=== PATIENT | female | born 1935 | race Caucasian/White ===

== ENCOUNTER 2017-07-01 16:55 | Observation (INO) | payer MEDICARE, BC ==
[~2017-07-01 16:55] MED LIST: ISOVUE-370 76%-LOCM 1 ML ONE
[2017-07-01 17:23] LABS: #Basophils 0.1 thou/uL (0.0-0.2); #Eosinphils 0.2 thou/uL (0.0-0.7); #Monocytes 1.1 thou/uL (0.11-0.59); #Neutrophils 9.8 thou/uL (1.40-6.50); %Basophils 0.6 % (0.0-1.0); %Eosinophils 1.1 % (0.0-10.0); %Lymphocytes 30.9 % (21.0-51.0); %Monocytes 6.8 % (0.0-10.0); Hematocrit 44.1 % (36.0-47.0); Mean Platelet Volume 7.5 fL (7.4-10.4); Red Blood Cell (RBC) Count 4.74 mill/uL (4.20-5.40); White Blood Cell (WBC) Count 16.2 thou/uL (4.8-10.8)
[2017-07-01 17:30] LABS: Prothrombin Time 12.9 SEC (12.0-14.7)
[2017-07-01 17:31] LABS: PTT 34.7 SEC (22.9-36.1)
[2017-07-01] MEDS ORDERED: Acetaminophen 500 MG TAB ONE (17:36)
[2017-07-01] MEDS ORDERED: Nitroglycerin 2% Ointment 1 INCH/1 GM Packet ONE (17:36)
[2017-07-01 17:43] LABS: Digoxin Less than 0.15 ng/mL (0.8-2.0)
[2017-07-01 17:46] LABS: ALT (SGPT) 10 U/L (8-55); AST (SGOT) 14 U/L (5-34); Alkaline Phosphatase 120 U/L (40-150); Anion Gap 16 mmol/L (10-20); BUN (Urea Nitrogen) 15 mg/dL (9.8-20.1); Bilirubin, Total 0.7 mg/dL (0.2-1.2); CK (CPK) 51 U/L (29-168); Calc. Creatinine Clearance 0 mL/min (70-130); Calcium 9.6 mg/dL (7.8-10.44); Carbon Dioxide 27 mmol/L (23-31); Chloride 101 mmol/L (98-107); Estimated GFR-MDRD 71; Lipase 19 U/L (8-78); Protein, Total 7.1 g/dL (6.0-8.3)
[2017-07-01 17:48] LABS: Troponin I Less than 0.010 ng/mL (< 0.028)
--- NOTE | 2017-07-01 17:57 | RAD ---
PORTABLE UPRIGHT CHEST ONE VIEW: History: 81-year-old female with chest pain. FINDINGS: Monitor leads overlie the chest. Atherosclerosis of the aorta with ectasia. Upper range of normal si ze heart. Increased linear and interstitial markings noted bilaterally with some biapical pleural th ickening having more the appearance of chronic change. No confluent pneumonia, overt edema, or pleur al effusion. IMPRESSION: Minimal scattered chronic change. No acute intrathoracic disease. POS: [facility]
--- NOTE | 2017-07-01 19:54 | CT ---
CHEST CT ANGIOGRAM INCLUDING 3D RENDERING: History: 81-year-old female with chest pain. FINDINGS: There is enlargement of the left lobe of the thyroid with a multinodular appearance. This area of ab normality noted approximately 2.1 x 3.4 cm in AP and transverse dimensions at the lower thyroid leve l. There is biapical pleural thickening. Extensive emphysema changes bilaterally with chronic linear and interstitial lung disease. Three vessel coronary artery calcific disease. No evidence of pleura l effusion or pericardial effusion. There is some atherosclerosis of the aorta with poor mixing of c ontrast. There is no significant CT evidence for acute pulmonary embolism. Visualized upper abdomen is unremarkable. The descending thoracic aorta is ectatic up to 3.3 x 3.5 cm. IMPRESSION: No significant CT evidence for acute pulmonary embolus. Chronic changes bilaterally with emphysema a nd hyperinflation and biapical pleural thickening. Some atherosclerotic ectatic changes of the aorta . Diffuse bony demineralization. POS: [facility]
[2017-07-01] MEDS ORDERED: Losartan Potassium 25 MG TAB PO SCH (20:00)
[2017-07-01] MEDS ORDERED: hydrALAZINE 20 MG/ML VIAL SLOW IVP PRN (20:49)
[2017-07-01] MEDS ORDERED: HYDROcodone/Acetaminophen 10/325 mg Tablet PO PRN (20:49)
[2017-07-01] MEDS ORDERED: HYDROcodone/Acetaminophen 5/325 mg Tablet PO PRN (20:49)
[2017-07-01] MEDS ORDERED: Acetaminophen 325 MG TAB PO PRN (20:49)
--- NOTE | 2017-07-01 21:09 | HP ---
CHIEF COMPLAINT: Chest pain and high blood pressure. HISTORY OF PRESENT ILLNESS: Ms. Hagan is a very pleasant 81-year-old white female with a histor y of hypertension, recently diagnosed, anxiety and \\\\"balance problems.\\\\" The patient was in her normal state of health until this morning. She woke up with some chest disco mfort all the way across her chest. She notes that the pain was worse with palpation or motion and worse with deep inspiration with alleviating factors being not moving and not taking deep breaths. She noted that her blood pressure was elevated through the day and the pain seemed to get worse this afternoon, so she called the EMS. Supposedly, on EMS arrival, her blood pressure was 243/148. She was given a medicine on transport and brought to the Emergency Department for evaluation. Patient was given 324 mg of aspirin, and presented to this Emergency Department for evaluation. Here, she was still found to be hypertensive in the 211/110 range, she was placed on nitro paste wit h some improvement. Her chest pains also eased up. She was given sublingual nitro, which did not r eally make a difference in her chest pain. Workup here showed her labs to be unremarkable. Her troponin was negative. CK-MB was negative and BNP was slightly elevated to 57. D-dimer was mildly elevated at 1.09, so CT angio has been ordered and it is pending. She denies any shortness of breath, no diaphoresis, no nausea and vomiting. No fevers or chills, no cough or sputum production. No GI bleeding from above or below or hemoptysis. The patient normally takes her blood pressure medicines, which were started after her high blood pre ssure was found with a stress test a couple months ago. She had a headache earlier and took some Ex cedrin, and because she had caffeine, did not want to take regular blood pressure medicines, so did not take her regular blood pressure medicines at all. PAST MEDICAL HISTORY: 1. Anxiety. 2. Hypertension. 3. Vertigo or disequilibrium. 4. Compression fracture. She did have a stress test a couple of months ago that was unremarkable for ischemia, but did reveal her high blood pressure. PAST SURGICAL HISTORY: Include; 1. Laparoscopic cholecystectomy in 2005. 2. Right inguinal hernia repair remotely. 3. Left inguinal hernia repair in 11/2015. 4. Colonoscopy 5-6 years ago. 5. Back surgery. HOME MEDICATIONS: 1. Duloxetine 60 mg p.o. daily. 2. Ativan 0.5 mg p.o. daily. 3. Losartan 100 mg p.o. daily. 4. Metoprolol 25 mg p.o. b.i.d. 5. Mirtazapine 30 mg p.o. at bedtime. ALLERGIES: NKDA. FAMILY HISTORY: Significant for dad had coronary artery disease, diagnosed in \\\\"middle age.\\\\" No history of clotting or bleeding disorders, no immune dysfunction. SOCIAL HISTORY: Negative habits. No real alcohol or drugs. She does smoke about one-third pack of cigarettes per day for 50 years. REVIEW OF SYSTEMS: A 10-point review of systems was performed, negative for all other systems excep t as stated per HPI. PHYSICAL EXAMINATION: VITAL SIGNS: Temperature is 98.2, pulse 78, blood pressure 183/80, respiratory 20 and sating 94% on room air. GENERAL: She is awake. She is alert. She is oriented x3. She is well-developed, well-nourished, thin white female, appears to be in no acute distress. HEENT: Normocephalic and atraumatic. Pupils are equal, round and reactive to light bilaterally, mu cous membranes are moist. She had no visible lesions. No thrush. NECK: Supple. She had no lymphadenopathy, no JVD, no thyromegaly. LUNGS: Clear to auscultation bilaterally. There are no wheezes, no rales, no rhonchi. Her chest w all is tender to palpation. CARDIOVASCULAR: Normal S1 and S2. No S3 or S4. No murmurs and no rubs. ABDOMEN: Soft. It is nontender and nondistended with normoactive bowel sounds. She has no rebound , rigidity or guarding. EXTREMITIES: No cyanosis, no clubbing, no edema with 2+ peripheral pulses in the dorsalis pedis, po sterior tibial and radial arteries that are bounding. SKIN: Warm, moist and well perfused. She has no hyperemia, no rashes or lesions. NEUROLOGIC: Cranial nerves II-XII are grossly intact without any focal neurologic deficits. SKIN: She has normal speech and 5/5 strength. MUSCULOSKELETAL: Normal to inspection. She has no inflamed joints and no palpable joint effusions. LABORATORY DATA: CMP and CBC are normal except for white blood cell count of 16.2 with a normal dif ferential. IMAGING DATA: Chest x-ray showed minimal scattered chronic changes and no acute intrathoracic disea se. Her CT angio is pending and will follow up on. ASSESSMENT AND PLAN: 1. Hypertensive urgency. Blood pressure apparently was 243/148 earlier. We will restart her home medications, p.r.n. hydralazine, and will monitor her blood pressure. We will place her in observat ion overnight. I suspect, chest pain may be related. 2. Noncardiac chest pain. She had chest pain all day long. Negative biomarkers, negative EKG. He r chest pain is better as the pressures come down. We will watch her overnight, get serial cardiac biomarkers and reassess in the morning. Watch on telemetry overnight. 3. Anxiety: On Ativan 0.5 mg daily. She took apparently this morning. 4. History of disequilibrium: Out of bed with assistance and fall precautions. 5. Gastrointestinal prophylaxis with Pepcid will be started. 6. Deep venous thrombosis prophylaxis with sequential compression devices. We will reorder her ely tazapine 30 mg at bedtime for insomnia.
[2017-07-01] MEDS: Metoprolol Tartrate 25 MG TAB PO SCH (21:37)
[2017-07-01] MEDS: Famotidine 20 MG TAB PO SCH (21:37)
[2017-07-01 22:29] LABS: Troponin I Less than 0.010 ng/mL (< 0.028)
[2017-07-02] MEDS: Ondansetron ODT 4 MG TAB PO PRN ×2 (04:40→10:12)
[2017-07-02 05:22] LABS: #Basophils 0.1 thou/uL (0.0-0.2); #Eosinphils 0.2 thou/uL (0.0-0.7); #Lymphocytes 3.5 thou/uL (1.20-3.40); #Monocytes 1.2 thou/uL (0.11-0.59); #Neutrophils 8.8 thou/uL (1.40-6.50); %Basophils 0.5 % (0.0-1.0); %Eosinophils 1.4 % (0.0-10.0); %Lymphocytes 25.7 % (21.0-51.0); %Monocytes 8.4 % (0.0-10.0); Hematocrit 42.7 % (36.0-47.0); Mean Platelet Volume 7.2 fL (7.4-10.4); Red Blood Cell (RBC) Count 4.61 mill/uL (4.20-5.40); White Blood Cell (WBC) Count 13.7 thou/uL (4.8-10.8)
[2017-07-02 05:44] LABS: Anion Gap 14 mmol/L (10-20); BUN (Urea Nitrogen) 17 mg/dL (9.8-20.1); Calc. Creatinine Clearance 0 mL/min (70-130); Calcium 9.3 mg/dL (7.8-10.44); Carbon Dioxide 27 mmol/L (23-31); Chloride 101 mmol/L (98-107); Estimated GFR-MDRD 68
[2017-07-02 05:59] VITALS: BMI 14.3
[2017-07-02 06:34] LABS: Troponin I Less than 0.010 ng/mL (< 0.028)
[2017-07-02] MEDS ORDERED: Losartan Potassium 25 MG TAB PO SCH (09:00)
[2017-07-02] MEDS ORDERED: Naproxen 500 MG TAB PO PRN (09:57)
[2017-07-02] MEDS ORDERED: traMADol HCl 50 MG TAB PO PRN (09:58)
[2017-07-02] MEDS ORDERED: Potassium Chloride 20 MEQ TAB PO SCH (10:00)
[2017-07-02] MEDS: Famotidine 20 MG TAB PO SCH (10:11)
[2017-07-02] MEDS: Metoprolol Tartrate 25 MG TAB PO SCH (10:12)
[2017-07-02 11:45] VITALS: BP 158/74; TEMP 98.1
--- NOTE | 2017-07-02 14:04 | DIS ---
DATE OF ADMISSION: 07/01/2017 DATE OF DISCHARGE: 07/02/2017 DISCHARGE DIAGNOSES: 1. Noncardiac chest pain. 2. Hypertensive urgency. 3. Essential hypertension. 4. Anxiety. 5. Dysequilibrium. 6. Recent fall and compression fracture. CONSULTATIONS: None. PROCEDURES: CT angiogram negative for pulmonary embolus showing chronic lung changes. HOSPITAL COURSE: Ms. Hagan is a pleasant, but slightly cantankerous 81-year -old female who is a patient of Dr. Oscar Anglin. She was in normal state of health until the morning of admission. She woke up with some chest discomfort that went all the way across her chest. It hurt with palpation to her chest and movement and deep breathing. She watched this morning, but noted that her blood pressure was elevated, so she called EMS. On arrival it was reported the blood pressure was 243/148. She was given some medication on transport and brought to our emergency department for evaluation. On arrival, she was initially 211/110. She was given transcutaneous nitro paste with some improvement. Labs including a CK-MB, CK, and troponin were negative and BNP was slightly elevated. A D-dimer was 1.09. CT angiogram was ordered and we were called for admission. She had no shortness of breath, diaphoresis, no nausea or vomiting. She had no signs of diaphoresis. HOSPITAL COURSE: The patient was seen and examined by me in the emergency department. The patient was placed in observation. CT angiogram report revealed no evidence of pulmonary embolus. Overnight, she did get her regular blood pressure medicines with a single dose of hydralazine. Her blood pressure remained in the 150s to 160s systolic all night long and at one point this morning dropped down to 118/68 while she was sleeping. Chest pain was largely asymptomatic, when her pressure came up in the 140s to 150s this morning she did complain of a little more chest pain, but did not change in character from admission. She had her morning medicines and her blood pressure and heart rate remained stable. She got some Naprosyn, which treated her pain and she was otherwise asymptomatic and stable for discharge. She had 3 sets of cardiac biomarkers that were negative. Per history, she had a stress test at [facility] a month or two ago that was \\\\"normal.\\\\" The patient was discharged home with outpatient followup. PHYSICAL EXAMINATION: The patient was seen and examined on the day of discharge. Discharge plan and disposition was discussed with the patient face to face at the bedside. Greater than 35 minutes were spent in the room with the patient and coordinating discharge and followup. DISCHARGE MEDICATIONS: 1. Duloxetine 60 mg p.o. daily. 2. Lorazepam 0.5 mg p.o. t.i.d. 3. Losartan 100 mg daily. 4. Metoprolol tartrate 25 mg p.o. b.i.d. 5. Mirtazapine 30 mg daily. 6. I offered her tramadol 50 mg p.o. q.6h. and she did refuse that. FOLLOWUP APPOINTMENTS Dr. Oscar Anglin within a week. DISCHARGE CONDITION: Stable. DISPOSITION: Being discharged home via private vehicle. Instructions to return to the emergency department for uncontrolled high blood pressure, or change in her chest pain. [facility]
== END 2017-07-02 13:54 | disposition home or self-care (01) ==
LOC: ERS 16:55 → 2SW 19:40
PROVIDERS: ADMIT Internal Medicine Infectious Disease; ATTEND Internal Medicine Infectious Disease
DX: R07.89 Other chest pain (principal); I16.0 Hypertensive urgency; I10 Essential (primary) hypertension; F41.9 Anxiety disorder, unspecified; R42 Dizziness and giddiness; Z91.81 History of falling; T14.8XXA Other injury of unspecified body region, initial encounter; Z88.5 Allergy status to narcotic agent; Z79.899 Other long term (current) drug therapy; Z87.891 Personal history of nicotine dependence
CPT/HCPCS: 71010; 71275; 80048; 80053; 80162; 82550; 82553 ×3; 83690; 83880; 84132; 84484 ×3; 85025 ×2; 85379; 85610; 85730; 93005; 99291; G0378; 36415; Q0162

== ENCOUNTER 2017-08-27 16:21 | Emergency (ER) | payer MEDICARE, BC ==
[2017-08-27] MEDS ORDERED: Dexamethasone 10 MG/ML VIAL ONE (16:56)
[2017-08-27] MEDS ORDERED: Fentanyl 100 MCG/2 ML VIAL ONE ×2 (16:57→19:12)
[2017-08-27 17:15] LABS: #Eosinphils 0.3 thou/uL (0.0-0.7); #Lymphocytes 2.4 thou/uL (1.20-3.40); #Monocytes 0.8 thou/uL (0.11-0.59); #Neutrophils 6.9 thou/uL (1.40-6.50); %Basophils 0.4 % (0.0-1.0); %Eosinophils 2.6 % (0.0-10.0); %Monocytes 7.4 % (0.0-10.0); Hematocrit 42.2 % (36.0-47.0); Mean Platelet Volume 7.4 fL (7.4-10.4); Red Blood Cell (RBC) Count 4.57 mill/uL (4.20-5.40); White Blood Cell (WBC) Count 10.4 thou/uL (4.8-10.8)
[2017-08-27 17:36] LABS: ALT (SGPT) 9 U/L (8-55); AST (SGOT) 14 U/L (5-34); Alkaline Phosphatase 119 U/L (40-150); Anion Gap 14 mmol/L (10-20); BUN (Urea Nitrogen) 14 mg/dL (9.8-20.1); Bilirubin, Total 0.3 mg/dL (0.2-1.2); Calc. Creatinine Clearance 0 mL/min (70-130); Calcium 9.5 mg/dL (7.8-10.44); Carbon Dioxide 29 mmol/L (23-31); Chloride 99 mmol/L (98-107); Estimated GFR-MDRD 70; Globulin 3.4 g/dL (2.4-3.5); Lipase 20 U/L (8-78); Protein, Total 7.2 g/dL (6.0-8.3)
[2017-08-27 17:40] LABS: Troponin I 0.016 ng/mL (< 0.028)
[2017-08-27] MEDS ORDERED: Magnesium Citrate 300 ML BOT ONE (19:09)
--- NOTE | 2017-08-27 19:20 | CT ---
ABDOMEN AND PELVIS CT SCAN WITH IV CONTRAST: History: 81-year-old female with back pain and lower GI bleed. Comparison: 12-22-15 FINDINGS: There is some mild linear chronic appearing stranding in the lung bases. Atherosclerosis of the aorta with some ectasia and extensive calcification of the aorta as well as right and left iliac arteries with at least some degree of iliac artery stenosis. Status post cholecystectomy with fairly marked di latation of the common bile duct and central intrahepatic ducts, but stable from the prior 12-22-15 st udy. Pancreas, spleen, and adrenal glands are within normal limits, stable from prior study. There is mild fullness of both right and left renal pelvises, somewhat more so on the right side but these have de finitely improved when compared to the prior study. There is extensive solid thecal material througho ut the colon including a dilated rectum, evidence for significant obstipation. There are multiple col onic diverticulosis changes without evidence for acute diverticulitis. A definite normal appendix is not seen but there is no CT evidence for acute appendicitis. No evidence for large or small bowel obs truction. There is noted to be very severe compression fracture of L4. There is also fairly severe co mpression fracture of L2 and mild compression of L1. The L2 and L4 compression fractures are new from the 12-22-15 study. In addition, the L4 fracture is new when compared to a 10-25-16 lumbar spine. IMPRESSION: Very severe vertical height loss of the L4 vertebral body with some retropulsion and canal stenosis w hich does not appear by CT to be overtly acute but is new when compared to the 10-25-16 study. Stable post op cholecystectomy and dilated common bile duct and intrahepatic ducts. Mild fullness of the katalina al upper collecting system on the right side, but much improved from prior study. Evidence for obstip ation. Numerous other non-emergent findings which are overall stable. POS: [facility]
[2017-08-27] MEDS ORDERED: Diazepam 5 MG TAB ONE (23:06)
[2017-08-27] MEDS ORDERED: Diazepam 2 MG TAB PO SCH (23:15)
[2017-08-27] MEDS ORDERED: Ketorolac Tromethamine 30 MG/ML VIAL ONE (23:40)
--- NOTE | 2017-08-28 00:11 | CON ---
DATE OF CONSULTATION: 08/27/2017 HISTORY OF PRESENT ILLNESS: The patient is a 81-year-old female with a past medical histor y of chronic back pain, prior compression fractures of L1 and L2, osteopenia, hypertension, anxiety, vertigo, who presented to the ER [facility] for evaluation of hematochezia x1 week and progressively wor sening back pain and the right leg discomfort over the past 3 days. The patient denies trauma or any other inciting event. The patient was evaluated with a CT of the chest, abdomen, and pelvis, which revealed progression of the L2 compression deformity and a new L4 compression fracture with mild retr opulsion. This L4 compression fracture, although new when compared to lumbar CT in 10/2016, does not appear acute in its appearance. Patient reports some worsening low back pain for approximately 3 days. There was no inciting event. She describes some sharp stabbing sensation in the back with radiation down the right leg in an L4 p attern. She denies any leg weakness, numbness, tingling of legs, saddle anesthesia, urinary incontin ence, or difficulty emptying her bladder. In the past, she reports her compression fractures have be en treated with a TLSO brace. She denies any prior back surgery. She was treated with fentanyl in [facility] emergency department with significant improvement in her pain. PAST MEDICAL HISTORY: Chronic back pain, compression fractures, osteopenia, hypertension, anxiety, v ertigo. PAST SURGICAL HISTORY: Cholecystectomy, hernia repair. ALLERGIES: The patient is allergic to CODEINE and MORPHINE. FAMILY HISTORY: Noncontributory. SOCIAL HISTORY: The patient lives at home. She is . She does not smoke, drink, or use any d rugs. REVIEW OF SYSTEMS: Per HPI. PHYSICAL EXAMINATION: VITAL SIGNS: BP 185/103, heart rate 86, respirations rate is 18, temperature 97.3. The patient is 9 3% on room air, 4/10 pain at this time. CONSTITUTIONAL: No acute distress. GENERAL: Lying comfortably in the bed. HEAD: Normocephalic, atraumatic. EYES: PERRLA. Extraocular movements are intact. ENT: OP is clear. Mucosa are moist. Voice is normal. NECK: Nontender to palpation. Free active range of motion, no meningismus or nuchal rigidity. CARDIOVASCULAR: Regular rate and rhythm. LUNGS: The patient is breathing comfortably with no evidence of dyspnea. She has symmetric chest ex pansion. ABDOMEN: Flat, soft, nontender to palpation. BACK: She is tender to palpation diffusely over the lumbar spine and bilateral paralumbar musculatur e. MUSCULOSKELETAL: She has good muscle tone to bilateral upper and lower extremities. No focal motor weakness is appreciated. No reflex asymmetry. NEUROLOGIC: The patient is A and O x4. No focal neurologic deficits are appreciated. ASSESSMENT: Chronic back pain, osteopenia, compression fractures, progression of L2 compression defo rmity, and new L4 compression deformity. PLAN: Although, L4 compression fracture, it is new when compared to prior. Imaging does not appear acute in nature. The patient does report significantly progressive worsening back pain over several months, but worsening over the last 3 days. She has no focal motor weakness on my exam, but she does have new right radicular leg pain. There is mild retropulsion when looking at the CT, so we will re commend evaluation with the lumbar noncontrast MRI. I have also ordered TLSO brace. The patient may require rehabilitation placement at some point. Regarding her other medical issues, these will be m anaged by the medical service and she will be admitted primary to their service. I have discussed th is plan with Dr. Decker, who is in agreement. Please reach out the Neurosurgery Service for additi onal questions or concerns.
== END 2017-08-27 23:50 | disposition home or self-care (01) ==
LOC: ERS 16:21
DX: S32.049A Unspecified fracture of fourth lumbar vertebra, initial encounter for closed fracture (principal); K92.2 Gastrointestinal hemorrhage, unspecified; K59.00 Constipation, unspecified; I10 Essential (primary) hypertension; F41.9 Anxiety disorder, unspecified; X58.XXXA Exposure to other specified factors, initial encounter
CPT/HCPCS: 36415; 74177; 80053; 82274; 82553; 83690; 84484; 85025; 86850; 86900; 86901; 93005; 96374; 96375; 96376; J1100; J1885; J3010

== ENCOUNTER 2018-01-08 09:09 | Inpatient (IN) | payer MEDICARE, BC ==
[2018-01-08] MEDS ORDERED: Fentanyl 100 MCG/2 ML VIAL ONE ×5 (09:24→17:23)
[2018-01-08] MEDS ORDERED: Ondansetron ODT 4 MG TAB ONE (09:26)
[2018-01-08 09:59] LABS: Hemoglobin 10.8 g/dL (12.0-16.0); Mean Corpuscular HGB CONC 31.6 g/dL (32.0-36.0); Mean Corpuscular Hemoglobin 26.5 pg (27.0-31.0); Mean Corpuscular Volume 83.8 fl (81.0-99.0); Platelet Count 605 thou/uL (130-400); RBC Distribution Width 14.6 % (11.5-14.5); Red Blood Cell (RBC) Count 4.09 mill/uL (4.20-5.40); White Blood Cell (WBC) Count 36.8 thou/uL (4.8-10.8)
[2018-01-08] MEDS ORDERED: Promethazine HCl 25 MG/ML VIAL ONE (10:09)
[2018-01-08] MEDS ORDERED: Sodium Chloride 0.9% 100 ML ONE (10:09)
[2018-01-08 10:21] LABS: ALT (SGPT) 8 U/L (8-55); AST (SGOT) 10 U/L (5-34); Albumin 2.9 g/dL (3.4-4.8); Alkaline Phosphatase 191 U/L (40-150); Anion Gap 18 mmol/L (10-20); BUN (Urea Nitrogen) 31 mg/dL (9.8-20.1); Bilirubin, Total 0.5 mg/dL (0.2-1.2); Calc. Creatinine Clearance 0 mL/min (70-130); Calcium 8.3 mg/dL (7.8-10.44); Carbon Dioxide 26 mmol/L (23-31); Chloride 97 mmol/L (98-107); Estimated GFR-MDRD 68; Globulin 3.5 g/dL (2.4-3.5); Glucose 145 mg/dL (83-110); Lipase 14 U/L (8-78); Magnesium 1.5 mg/dL (1.6-2.6); Protein, Total 6.4 g/dL (6.0-8.3); Sodium 138 mmol/L (136-145)
[2018-01-08 10:26] LABS: Potassium 2.7 mmol/L (3.5-5.1)
[2018-01-08 10:29] LABS: Anisocytosis SLIGHT = 6-15 cells (100X) (0-5/hpf); Band 13 % (5-11); Hypochromia SLIGHT = 6-15 cells (100X) (0-5/hpf); Lymphocytes 2 % (21-51); MDiff Complete? YES; Monocytes 1 % (0-10); Neutrophil 84 % (42-75); PLT Morphology Comment Appears Increased; Target Cells SLIGHT = 2-5 cells (100X) (0-1/hpf)
--- NOTE | 2018-01-08 11:09 | RAD ---
SINGLE VIEW OF THE CHEST: COMPARISON: 07/01/17. HISTORY: Abdominal pain and shortness of breath. Nausea and vomiting. FINDINGS: A single view of the chest shows a normal-size cardiomediastinal silhouette with atherosclerotic calc ifications of the aorta. Increased interstitial markings are present. There is no evidence of conso lidation, mass, or pleural effusion. IMPRESSION: No evidence of acute cardiopulmonary disease. POS: [facility]
[2018-01-08] MEDS ORDERED: Piperacillin/Tazobactam 3.375 GM VIAL ONE ×2 (11:51→18:32)
[2018-01-08 12:21] LABS: Bilirubin Negative (Negative); Blood, Urine Negative (Negative); Clarity CLEAR (Clear); Glucose, Urine (Dipstick) Negative (Negative); Leukocyte Negative (Negative); Nitrite Negative (Negative); Protein, Urine (Dipstick) 100 mg/dL (Neg-Trace); Specific Gravity, Urine 1.041 (1.002-1.036)
[2018-01-08 12:24] LABS: Bacteria/HPF 3+ HPF (None Seen); Pathc Cast-AUWi Flag 0.87 (0-2.49)
--- NOTE | 2018-01-08 12:31 | CT ---
CT OF THE ABDOMEN AND PELVIS WITH IV CONTRAST: INDICATION: Abdominal pain and shortness of breath. COMPARISON: Prior exam dated 08/27/17. FINDINGS: There are small bilateral pleural effusions. There is a moderate-sized hiatal hernia. There is biba silar atelectasis. There is a cirrhotic morphology to the liver. There is free air and free fluid seen throughout the a bdomen and pelvis. There is a 10.3 x 6.2 cm fluid and gas collection seen adjacent to the proximal sigmoid colon suspici ous for perforated colitis. There is marked wall thickening involving the rectum and colon suspiciou s for diffuse proctocolitis. There is a peripherally enhancing fluid collection seen behind the bladder within the retrovesicular space measuring 6.1 cm on image 62 of series 2. The gallbladder is surgically absent. Visualized pancreas, adrenal gland, and kidneys appear within normal limits. The spleen is normal-appearing. There is wall thickening involving the distal gastri c antrum and duodenum. There are stable compression abnormalities involving L4, L2 and L1. There are new compression abnorm alities involving T12 and L3 which were not present on the prior exam. There are bilateral insuffici ency fractures of the sacral ala which are new from the prior exam. There is an ununited insufficien cy fracture involving the right pubic body which is new from the prior exam. IMPRESSION: 1. Findings most consistent with a perforated colitis of the sigmoid colon with a large fluid and ga s communication seen adjacent to the sigmoid colon within the left lower quadrant of the abdomen exte nding into the left hemipelvis and up to the skin surface of the left lower quadrant of the abdomen o n image 57 of series 2. There is fluid and gas communicating with the left iliopsoas tendon. 2. There is a peripherally enhancing fluid collection within the retrovesicular space measuring 6.1 cm that is not amenable to percutaneous sampling. 3. Scattered free air and free fluid within the abdomen and pelvis consistent with intraperitoneal p erforation. 4. Small bilateral pleural effusions and bibasilar atelectasis. 5. Interval development of compression fractures involving the L3 and T12. 6. New insufficiency fractures of both sacral alae and the right pubic body. 7. Moderate hiatal hernia. 8. Cirrhotic morphology of the liver. 9. Findings were called to Dr. Payne at 11:15 a.m. on 01/08/18. CODE CR POS: [facility]
--- NOTE | 2018-01-08 12:50 | CON ---
DATE OF CONSULTATION: 01/08/2018 REQUESTING PHYSICIAN: Maria R Payne M.D. HISTORY OF PRESENT ILLNESS: This is an 82-year-old woman presented to Emergency Department today complaining of severe generalized abdominal pain. The patient reports progressively worsening left lower quadrant abdominal pain which started almost one week ago. Pain is described as sharp in itially without radiation. Over the last 24-48 hours, the pain is generalized, now rated at 10/10. The pain is associated with multiple episodes of nausea and slightly bilious emesis. Patient had a b out of diarrhea this morning. She denies any fevers or chills. PAST MEDICAL HISTORY: Pertinent for diverticulosis coli, degenerative arthritic disease, essential h ypertension, chronic anxiety disorder and vertigo. PAST SURGICAL HISTORY: Pertinent for laparoscopic cholecystectomy in 2005, right inguinal herniorrha phy many years ago. The patient also had a left inguinal herniorrhaphy in 11/2015. Last colonoscopy was more than 5 years ago, but less than 10 years. She has had some spinal surgery. She does not r ecall the level. SOCIAL HISTORY: She is a retired elementary school professional. She lives at home with elderly with senile dementia. She also has an adult son who lives in the same house. She denies any cigarette smoking, ethanol or illicit drug abuse. FAMILY HISTORY: Noncontributory for this patient's age. PREHOSPITAL MEDICATIONS: Includes duloxetine 60 mg p.o. daily, Ativan p.o. p.r.n., losartan 100 mg p .o. daily, metoprolol 25 mg p.o. b.i.d. and mirtazapine 30 mg p.o. at bedtime. ALLERGIES: Patient denies any known drug allergies. REVIEW OF SYSTEMS: Ten point review of systems essentially unremarkable except for as stated in past medical history and chief complaint. PHYSICAL EXAMINATION: GENERAL: This reveals 82-year-old normally developed woman who is otherwise coherent and interactive and appears stated age. The patient is alert and oriented x3. She appears to be in severe acute di stress secondary to her severe abdominal pain. VITAL SIGNS: Initial vital signs included blood pressure which was over 200 of systolic on arrival. Having received some intravenous analgesics, current blood pressure is 171/75, pulse 113, respirator y rate is 18, temperature 97.6 degrees Fahrenheit, oxygen saturation is 100% on 2 liters by nasal can nula oxygen. HEENT: Examination reveals normocephalic and atraumatic. Pupils equal, round, and reactive to light and accommodation. Extraocular muscles are intact bilaterally. She has no sclerae icterus present. HEART: Reveals regular rate with sinus tachycardia. No murmurs or gallops auscultated. LUNGS: Clear to auscultation bilaterally. Her breathing is regular and unlabored. ABDOMEN: Soft, moderately distended for her body size. She has generalized severe abdominal tendern ess even with mild palpation with gross rebound tenderness present. Liver and spleen nonpalpable bel ow costal margin. EXTREMITIES: Reveals 2+ radial and pedal pulses bilaterally. No ankle edema is present. NEUROLOGIC: Examination reveals no focal deficits present. LABORATORY DATA AND IMAGING DATA: Laboratory findings today includes CBC with 36,800 white blood liudmila ls, hemoglobin and hematocrit 10.8 and 34.3 respectively, platelet count is 605,000. Differential co unts are as follows, 84% segmented neutrophils, 13% bands, 2 lymphocytes, and 1 monocyte. Metabolic profile: Sodium 138, potassium is 2.7, chloride is 97, bicarbonate 26, BUN 31, creatinine is 81, glu cose 145, lactic acid 2.8, magnesium 1.5, calcium 8.3, total bilirubin 0.5, AST and ALT normal at 10 and 8 respectively. Serum lipase is also normal at 14. I have personally reviewed the CT scan of th e abdomen and pelvis which is remarkable for significant inflammation and worsening left lower quadra nt with diffuse free fluid within the peritoneal cavity. There is also some loculated fluid in the l eft lower quadrant with air fluid levels. There is extensive amount of thickening of the rectum and colonic wall. There is thickening of the gastric antrum and pylorus as well, although I do not see a ny associated fluid collection in the area to suggest perforated peptic ulcerative disease. IMPRESSION: 1. Acute sigmoid colon diverticulitis with perforation. 2. Pelvic abscess. 3. Sepsis secondary to above. 4. Acute lactic acidosis. 5. Acute hypokalemia. 6. Acute hypomagnesemia. RECOMMENDATIONS: 1. Exploratory laparotomy, drainage of intraabdominal abscesses. 2. Sigmoidectomy with end colostomy. The above findings and recommendation has been discussed with the patient who indicates understanding of information given. I have advised all the risks and benefits of the proposed surgery. Risks inc rosaliee, but not limited to bleeding, infection, injury to bowel or surrounding structures. This information was given to the patient in presence of her nurse. She indicates understanding of i nformation given and has granted consent for this surgical intervention. Thank you again Dr. Heck for allowing me the opportunity to participate in the care of this patien t.
[2018-01-08 12:56] LABS: RBC/HPF 0-3 HPF (0-3)
[2018-01-08 12:57] LABS: Hyaline Casts/LPF NONE SEEN LPF (0-3 Hyaline)
[2018-01-08 12:58] LABS: Renal Epithelial 0-3 HPF (0-3); Transitional Epithelial 0-3 HPF (0-3)
[2018-01-08] MEDS ORDERED: PROPOFOL 200 MG/20 ML VIAL ONE (14:00)
[2018-01-08] MEDS ORDERED: Lidocaine 1% PF 5 ML VIAL ONE (14:00)
[2018-01-08 14:07] LABS: Lactic Acid 2.4 mmol/L (0.5-2.2)
[2018-01-08] MEDS ORDERED: ISOVUE-370 76%-LOCM 1 ML ONE (14:24)
--- NOTE | 2018-01-08 15:29 | HP ---
PRIMARY CARE PHYSICIAN: Oscar Anglin M.D. CHIEF COMPLAINT: Abdominal pain and diarrhea. HISTORY OF PRESENT ILLNESS: Ms. Hagan is a very pleasant 82-year-old female, who has a history o f hypertension and a fairly recent admission to the hospital last year in June for a vertebral com pression fracture. She was in her usual state of health until about a week ago. She says she was caldwell ving some abdominal pain, but she says it was not really that bad and it would come and go, it was in primarily the lower part of her abdomen, then she started having some vomiting and diarrhea. She sa ys that she also felt like she was having some "bad burps" and had decrease in appetite. She says sh gracy never had fever, but she had some chills only on one day. The pain became worse and it became more constant and would radiate to her back and shoulders to the point she had to come to the ER for eval uation. In the ER, she was found to have a leukocytosis with a white blood cell count of 36,800. La ctic acid was elevated at 2.[address] scan of the abdomen demonstrated what appears to be a perforated diverticulum in the sigmoid colon with evidence of free air. She has been evaluated by General Surg peter and the plan is for her to be taken urgently to surgery today. She denies having any chest pain. She says she has no known history of coronary artery disease. She has had some shortness of breath , but she says it just started today. She is ambulatory at home. She walks with a walker and there has been no history of any recent myocardial infarction. REVIEW OF SYSTEMS: Constitutional: There have been no fevers, but she has had some subjective chill s, no weight loss, but she has had anorexia and poor appetite. No night sweats. HEENT: No headache s, no dizziness, no visual changes, no sore throat, rhinorrhea, neck pain, no adenopathy. Pulmonary: No hemoptysis, no cough, no wheezing. Cardiovascular: She denies chest pain. There has been no P ND, no orthopnea. No lower extremity edema. No history of recent PR or heart disease that she is aw are of. She says she has known she has had a heart murmur. Gastrointestinal: As the history of pre sent illness. Genitourinary: No urinary frequency, hematuria, no hesitancy. Musculoskeletal: No m uscle pains, weakness or joint pains. Neurologic: No focal weakness, numbness, no seizures. Psychi atric: No symptoms of anxiety or depression. Skin and Integument: No skin changes. No rash. PAST MEDICAL HISTORY: Significant for hypertension, vertigo and compression fracture. PAST SURGICAL HISTORY: She has had a laparoscopic cholecystectomy, right inguinal hernia repair, lef t inguinal hernia repair, colonoscopy, and back surgery. ALLERGIES: No known drug allergies. SOCIAL HISTORY: She is a nonsmoker, nondrinker. She is . She lives independently at home. She gets around with a walker. Her 's name is Alexis Hagan and her oldest son Tyrone Hagan or Ernestine Hagan are the medical surrogate decision makers. She wishes to be a DNR. CURRENT MEDICATIONS: She is not sure of the names and doses. She goes to [facility] and we m ay need to call the pharmacy to obtain the names and doses of medicines. PHYSICAL EXAMINATION: GENERAL: She is alert and oriented. She appears to be in distress due to pain. VITAL SIGNS: Blood pressure is varying from 139 up to 190 systolic, heart rate is 108, respiratory r ate is 20, temperature is 97.2. HEENT: Pupils are equal, round, and reactive. Extraocular muscles are intact. Her sclerae are anic teric. Throat: No erythema, no exudates. NECK: No adenopathy, no bruits. LUNGS: Clear to auscultation. I did not appreciate any wheezing or rales. CARDIOVASCULAR: She has a normal S1, S2. I did not appreciate an S3 or S4. No murmurs, clicks or r ubs. ABDOMEN: Rigid and there is some diffuse tenderness. There is no rebound. She does have some volun tary guarding and involuntary guarding. Bowel sounds are present. EXTREMITIES: There is no edema. NEUROLOGIC: The exam is nonfocal. LABORATORY DATA: Her white blood cell count is 36.8, hemoglobin is 10.8, hematocrit is 34.3, platele t count is 605. Sodium is 138, potassium is 2.7, chloride is 97, CO2 is 26, BUN is 31, creatinine is 0.81, glucose is 145. Urinalysis was essentially negative. ASSESSMENT AND PLAN: 1. This is a pleasant 82-year-old female, who presents to the emergency room with severe abdominal p ain. She initially rated it about a 9/10. She was found to have a perforated diverticulum likely fr om a diverticular abscess. She will need to go emergently to surgery. Currently, she is hemodynamic ally stable and surgery is planned within the next 3 hours. She will be placed on broad-spectrum IV antibiotics and fluid resuscitation. Her EKG was an undetermined rhythm, the rate was in the 100s. There was a lot of baseline artifact, clinically it did seem slightly irregular. We will continue to monitor her postoperatively and deal with any arrhythmia as indicated should it arise. 2. Hypertension, likely she will be n.p.o. postoperatively and therefore we will manage blood pressu re with p.r.n. IV medications or topical if needed such as Catapres patch and follow postoperative re commendations as per General Surgery.
[2018-01-08] MEDS ORDERED: Midazolam HCl 2 mg/2 ml Vial ONE (16:50)
[2018-01-08] MEDS ORDERED: Albumin 5% 500 ML ONE (17:23)
[2018-01-08] MEDS ORDERED: Ondansetron HCl/PF 4 MG/2 ML Vial IVP PRN (20:26)
[2018-01-08] MEDS ORDERED: Labetalol HCl 100 MG/20 ML VIAL SLOW IVP PRN (20:26)
[2018-01-08] MEDS ORDERED: hydrALAZINE 20 MG/ML VIAL SLOW IVP PRN (20:26)
[2018-01-08] MEDS ORDERED: Famotidine 40 MG/4 ML VIAL SLOW IVP SCH (21:00)
[2018-01-08] MEDS ORDERED: Fentanyl 100 MCG/2 ML VIAL SLOW IVP PRN (21:01)
[2018-01-08 21:04] LABS: Actual Bicarbonate (HCO3a) 21.8 mEq/L (22-26); CO2 Tension 37.6 mmHg (35.0-45.0); O2 Tension (PaO2) 94.2 mmHg (80.0-100.0); pH, Arterial 7.38 (7.35-7.45)
[2018-01-08 21:05] LABS: Hemoglobin (Hb) 8.3 g/dL (12.0-16.0)
[2018-01-08 21:06] LABS: Calcium, Ionized 1.2 mmol/L (1.12-1.30); Puncture Site LINE
[2018-01-08] MEDS ORDERED: Albumin 5% 0 ML ONE (21:06)
--- NOTE | 2018-01-08 21:11 | RAD ---
PORTABLE CHEST: 01/08/18 HISTORY: Endotracheal tube placement. Dobhoff tube and NG tubes are below the hemidiaphragm. Heart size is borderline with atherosclerotic changes of the aorta. Lungs show chronic change. Endotracheal tube is in satisfactory position. IMPRESSION: Placement of an endotracheal tube which is in satisfactory position. POS: [facility]
[2018-01-08] MEDS: Piperacillin/Tazobactam 3.375 GM in Sodium Chloride 0.9% 100 ML IVPB SCH (21:34)
[2018-01-08] MEDS: 1/2 NS w/KCL 20 mEq 1,000 ML IV SCH (21:35)
--- NOTE | 2018-01-08 21:39 | RAD ---
KUB: 01/08/18 HISTORY: Dobhoff placement. NG tube is present within the stomach. A Dobhoff feeding tube is present. The tip of the tube is felt to most likely be within the proximal jejunum given its location, possibly has looped back into the stomach but I feel more likely would be within the jejunum. IMPRESSION: Dobhoff feeding tube. Tip of the tube is probably within the proximal jejunum. POS: [facility]
[2018-01-08] MEDS: Pantoprazole 80 MG, Admixture Fee 1 EACH in Sodium Chloride 0.9% 100 ML IVP SCH (22:38)
[2018-01-08] MEDS: Acetaminophen 1,000 MG in Premix Bag 1 BAG IVPB SCH (23:57)
[2018-01-09] MEDS: Fentanyl 100 MCG/2 ML VIAL SLOW IVP PRN ×2 (01:05→02:38)
[2018-01-09] MEDS ORDERED: Lorazepam 2 MG/ML VIAL SLOW IVP PRN (01:31)
[2018-01-09] MEDS ORDERED: Propofol BOLUS 1,000 MG/100 ML VIAL IV PRN (01:31)
[2018-01-09] MEDS ORDERED: Propofol 1,000 MG/100 ML VIAL IV PRN (01:31)
[2018-01-09] MEDS ORDERED: Fentanyl BOLUS 250 ML IVPB PRN (01:31)
[2018-01-09] MEDS ORDERED: DISCONTINUE PREVIOUS NARCOTIC PAIN MEDICATIONS AND BENZODIAZEPINES FS SCH (01:31)
[2018-01-09] MEDS ORDERED: Midazolam HCl 2 mg/2 ml Vial SLOW IVP PRN (01:33)
[2018-01-09] MEDS ORDERED: fentaNYL Citrate/PF 2,000 MCG in Sodium Chloride 0.9% 60 ML IV SCH (01:45)
[2018-01-09] MEDS: Piperacillin/Tazobactam 3.375 GM in Sodium Chloride 0.9% 100 ML IVPB SCH ×4 (02:45→21:19)
--- NOTE | 2018-01-09 03:06 | OP ---
DATE OF OPERATION: 01/08/2018 PREOPERATIVE DIAGNOSES: 1. Acute sigmoid colon diverticulitis with perforation. 2. Pelvic abscess. 3. Acute peritonitis. POSTOPERATIVE DIAGNOSES: 1. A 2 x 0.5 cm pyloric channel perforated ulcer. 2. Acute peritonitis secondary to #1. 3. Chronic diverticulitis with diverticular abscess. OPERATIONS PERFORMED: 1. Exploratory laparotomy. 2. Repair of 2 x 0.5 cm pyloric channel perforated ulcer with Ivan patch. 3. Drainage of pelvic abscess. 4. Abdominal washout. SURGEON: Humble Espinoza D.O. ANESTHESIA: General endotracheal. ESTIMATED BLOOD LOSS: 25 mL. FLUIDS GIVEN: 2000 mL crystalloids and 500 mL 0.5% albumin. COUNTS: Sponge and instrument count certified as correct x2. COMPLICATIONS: None apparent at the time of operation. INDICATIONS FOR OPERATION: This is an 82-year-old woman presented with worsening abdominal pain over [address] scan of the abdomen and pelvis was suggestive of perforated sigmoid c olon diverticulitis with pelvic abscess. The patient was brought to the operating room for explorati on. Findings are consistent with a 2 x 0.5 cm toleration of perforated ulcer with large amount of fermin ccus entericus within the peritoneal cavity. Exploration also revealed an old right pelvic abscess a nd evidence of chronic diverticulitis. DESCRIPTION OF OPERATION: Informed consent obtained from the patient who was brought to the operatin g room and placed in supine position. Following general anesthesia, previous Richard catheter was plac ed to bedside drain. Abdomen is sterilely prepped and draped in usual fashion. The skin is incised in the midline using a #10 scalpel. Incision was carried through subcutaneous tissues maintaining he mostasis using thermocautery. Fascia was incised in midline using cautery exposing the peritoneum wh ich was grasped x2 with hemostats. The peritoneal cavity was sharply entered using Metzenbaum scisso rs. Incision was then extended superiorly and inferiorly. Bookwalter retractor was put in place to gain exposure. Initial exploration revealed a large amount of succus entericus. This was evacuated using suction. We were then able to inspect the stomach. Finding; a 2 x 0.5 cm pyloric channel ulce r anteriorly with a large amount of succus egressing. This was repaired using interrupted sutures of 3-0 silk with a lip of omentum which was brought over the closure to achieve a Ivan patch. At [facility], a nasogastric tube was in place by Anesthesia, palpated this and gastric lumen. A nasoje junal tube was also introduced into the stomach by Anesthesia. I was able to manipulate the tip of t his catheter into proximal small bowel without resistance. I then inspected the small bowel from the ligament of Treitz down to terminal ileum, finding no other pathology. Normal appendix is noted in the usual anatomic location. Large intestine is inspected from the cecum through the ascending, james sverse, descending, sigmoid colon and rectum. Evidence of chronic diverticulitis involving the dista l sigmoid colon and rectum was noted. There was an old abscess cavity in the right lower quadrant ad jacent to the junction of the sigmoid colon and rectum. This abscess cavity was entered and old pus was evacuated using suction and the abdominal cavity was then copiously irrigated clear with saline s olution. Liver is palpated free of any abnormality. Gallbladder is surgically absent. An ectatic s pleen is palpated within the normal left upper quadrant location. Finding no other pathology, explor ation was terminated. I decided to avoid sigmoidectomy as doing so we certainly subject the patient to a colostomy which will require another operation for closure. My goal would therefore be to treat the chronic diverticulitis with a hope to electively prep the bowel in the future for sigmoidectomy and hopefully a colorectal anastomosis at that setting. A #19 Telly drain was introduced into the pe lvis cavity with the tip residing in the previous abscess cavity. A second #19 Telly drain was intro duced into the left upper quadrant. The tip of this is lying over the . Both drains were allow ed to exit the abdominal cavity through separate stab incision. Drains were secured to intraabdomina l wall using 2-0 silk suture. Small bowel was returned to normal anatomic location after all sponges and instruments were removed and accounted for. Omentum is drawn over the remainder of the viscera. Fascia was approximated in midline using a running stitch of #1 single stranded PDS. The subcutane ous tissues irrigated clear with saline solution. Subcutaneous tissues approximated using interrupte d sutures of 3-0 Vicryl. Skin incisions closed using a running stitch of 3-0 Monocryl suture in subc uticular fashion. Dermabond was applied over incisional closure. The patient tolerated the operatio n without any apparent complication and was returned to the Intensive Care Unit in critical but stabl e condition.
[2018-01-09] MEDS: Acetaminophen 1,000 MG in Premix Bag 1 BAG IVPB SCH ×4 (05:17→23:58)
[2018-01-09 05:37] LABS: Anion Gap 15 mmol/L (10-20); BUN (Urea Nitrogen) 31 mg/dL (9.8-20.1); Calc. Creatinine Clearance 31 mL/min (70-130); Calcium 7.7 mg/dL (7.8-10.44); Carbon Dioxide 20 mmol/L (23-31); Chloride 104 mmol/L (98-107); Estimated GFR-MDRD 56; Glucose 122 mg/dL (83-110); Potassium 3.9 mmol/L (3.5-5.1); Sodium 135 mmol/L (136-145)
[2018-01-09 07:00] LABS: Hemoglobin 8.3 g/dL (12.0-16.0); Mean Corpuscular HGB CONC 30.7 g/dL (32.0-36.0); Mean Corpuscular Hemoglobin 26.1 pg (27.0-31.0); Mean Platelet Volume 7.2 fL (7.4-10.4); Platelet Count 430 thou/uL (130-400); RBC Distribution Width 14.8 % (11.5-14.5); Red Blood Cell (RBC) Count 3.17 mill/uL (4.20-5.40)
[2018-01-09] MEDS: 1/2 NS w/KCL 20 mEq 1,000 ML IV SCH ×2 (07:31→16:14)
[2018-01-09] MEDS: Pantoprazole 80 MG, Admixture Fee 1 EACH in Sodium Chloride 0.9% 100 ML IVP SCH ×2 (07:32→18:32)
[2018-01-09 08:01] LABS: Magnesium 1.5 mg/dL (1.6-2.6); Phosphorus 3.4 mg/dL (2.3-4.7)
[2018-01-09 08:26] LABS: Band 47 % (5-11); Burr Cells SLIGHT = 2-5 cells (100X) (0-1/hpf); Lymphocytes 4 % (21-51); MDiff Complete? YES; Monocytes 1 % (0-10); Neutrophil 48 % (42-75); PLT Morphology Comment Appears Increased; Polychromasia SLIGHT = 2-3 cells (100X) (0-2/hpf); Reflex for Review?? NO; Toxic Granulation MODERATE
--- NOTE | 2018-01-09 09:10 | PDOC.PN ---
- Subjective Encounter Start Date: 01/09/18 Encounter Start Time: 09:10 Subjective: alert, mild abd discomfort - Objective Resuscitation Status: Resuscitation Status DNR:Do Not Resuscitate MAR Reviewed: Yes Vital Signs & Weight: Vital Signs (12 hours) Temp Pulse Resp BP Pulse Ox 01/09/18 07:00 98.5 F 01/09/18 06:34 107 H 151/66 H 01/09/18 06:00 18 01/09/18 04:00 98.7 F 16 01/09/18 02:00 15 01/09/18 00:00 98.7 F 100 14 100 01/08/18 22:00 14 Most Recent Monitor Data Heart Rate from ECG 90 NIBP 92/42 NIBP BP-Mean 55 Respiration from ECG 14 SpO2 100 I&O: 01/08/18 01/09/18 01/10/18 06:59 06:59 06:59 Intake Total 1940.6 Output Total 540 25 Balance 1400.6 -25 Result Diagrams: 01/09/18 06:52 01/09/18 05:10 Radiology Reviewed by me: Yes (abd- enteral feeding tube, some contrast in small bowel) Phys Exam - Physical Examination Neck: no JVD Respiratory: clear to auscultation bilateral Cardiovascular: RRR, no significant murmur tender, BS present Musculoskeletal: no edema Dx/Plan (1) Diverticulitis of intestine, part unspecified, with perforation and abscess without bleeding Code(s): K57.80 - DVTRCLI OF INTEST, PART UNSP, W PERF AND ABSCESS W/O BLEED Status: Acute Comment: post op (2) Lactic acidosis Code(s): E87.2 - ACIDOSIS Status: Acute (3) Sepsis Code(s): A41.9 - SEPSIS, UNSPECIFIED ORGANISM Status: Acute Qualifiers: Sepsis type: sepsis due to unspecified organism Qualified Code(s): A41.9 - Sepsis, unspecified organism (4) Essential hypertension Code(s): I10 - ESSENTIAL (PRIMARY) HYPERTENSION Status: Chronic - Plan cont iv fentanyl for pain -: enteral feedings started -: cont iv fluids -: cont piperacillin * .
[2018-01-09] MEDS ORDERED: Magnesium Sulfate 4 GM in Sodium Chloride 0.9% 250 ML 250 ML IVPB SCH (09:45)
[2018-01-09] MEDS: traMADol HCl 50 MG TAB PER TUBE PRN ×3 (09:57→21:26)
--- NOTE | 2018-01-09 10:07 | RAD ---
ABDOMEN 1 VIEW: Date: 01/09/18 HISTORY: Tube placement. COMPARISON: Abdomen 1 view from prior day. FINDINGS: Enteric suction tube in place with side port below the GE junction. A weighted feeding tube is in judy ce, likely within the proximal small bowel. There are multiple drains. IMPRESSION: No significant change. Adequate placement of both feeding and suction tubes. POS: [facility]
[2018-01-09] MEDS ORDERED: Iopamidol 370 76% 50 ML VIAL FS ONE (14:24)
--- NOTE | 2018-01-09 17:25 | PRG ---
DATE OF SERVICE: 01/09/2018 SUBJECTIVE: I saw Ms. Hagan this morning. She is an 82-year-old woman who is postop day #1 stat us post exploratory laparotomy with oversew of perforated pyloric ulcer. The patient is sedated on m echanical ventilator support. She awakens to voice, moving all extremities and following commands. Ventilatory support was weaned and the patient was successfully extubated. She reports adequate pain control. OBJECTIVE: VITAL SIGNS: At the time included blood pressure 111/60, pulse 92, respiratory rate 18, temperature 97.4 degrees Fahrenheit, oxygen saturation 100% on FiO2 of 30%. HEENT: Reveals normocephalic and atraumatic. She had no jugular venous distention noted. HEART: Reveals regular rate and rhythm, no murmurs or gallops auscultated. CHEST: Clear to auscultation bilaterally. Breathing is regular and unlabored. ABDOMEN: Soft and nondistended. She had incisional tenderness to palpation. Both Connor-Gaffney stephanie ins returned serous fluid in moderate amounts. EXTREMITIES: Reveals 2+ radial and pedal pulses bilaterally. No ankle edema is present. NEUROLOGIC: Reveals no focal deficits present. LABORATORY DATA: Today includes a CBC with 27,000 white blood cells, down from 36,800 yesterday. He moglobin and hematocrit are stable at 8.3 and 26.9 respectively. Platelet count is 430,000. Differe ntial counts as follows, 48% segmented neutrophils, 47 bands, 4 lymphocytes, and 1 monocyte. Metabol ic profile: Sodium 135, potassium 3.9, chloride is 104, bicarbonate is 20, BUN is 31, creatinine is 0.96, glucose is 122, magnesium 1.5, phosphorus 3.4. IMPRESSION: 1. Postoperative day #1 status post exploratory laparotomy with oversew of pyloric channel ulcer per foration. 2. Acute postoperative respiratory failure, resolved. 3. Acute hypomagnesemia. 4. Acute hypokalemia. PLAN: 1. Ventilatory support was weaned to a successful extubation. 2. Correct abnormal electrolytes. 3. Initiate physical and occupational therapy. 4. We will continue with Protonix by continuous infusion at this time. 5. Continue with trophic tube feeds, we will advance this to goal by tomorrow if tolerated. Above findings and plan discussed with patient who indicates understanding of the information given.
[2018-01-10] MEDS: 1/2 NS w/KCL 20 mEq 1,000 ML IV SCH ×4 (00:43→19:43)
[2018-01-10] MEDS ORDERED: Lorazepam 1 MG TAB PO SCH (02:00)
[2018-01-10] MEDS: Piperacillin/Tazobactam 3.375 GM in Sodium Chloride 0.9% 100 ML IVPB SCH ×4 (02:24→22:30)
[2018-01-10 06:06] LABS: Anion Gap 9 mmol/L (10-20); BUN (Urea Nitrogen) 28 mg/dL (9.8-20.1); Calc. Creatinine Clearance 33 mL/min (70-130); Calcium 7.3 mg/dL (7.8-10.44); Carbon Dioxide 21 mmol/L (23-31); Chloride 105 mmol/L (98-107); Estimated GFR-MDRD 60; Glucose 78 mg/dL (83-110); Magnesium 2.5 mg/dL (1.6-2.6); Phosphorus 2.7 mg/dL (2.3-4.7); Potassium 3.8 mmol/L (3.5-5.1); Sodium 131 mmol/L (136-145)
[2018-01-10 06:11] LABS: Band 21 % (5-11); Hemoglobin 8.5 g/dL (12.0-16.0); Lymphocytes 4 % (21-51); MDiff Complete? YES; Mean Corpuscular HGB CONC 30.5 g/dL (32.0-36.0); Mean Corpuscular Hemoglobin 26.1 pg (27.0-31.0); Mean Corpuscular Volume 85.8 fl (81.0-99.0); Mean Platelet Volume 7.3 fL (7.4-10.4); Monocytes 1 % (0-10); Neutrophil 74 % (42-75); Platelet Count 448 thou/uL (130-400); RBC Distribution Width 14.8 % (11.5-14.5); Red Blood Cell (RBC) Count 3.25 mill/uL (4.20-5.40); White Blood Cell (WBC) Count 35.9 thou/uL (4.8-10.8)
[2018-01-10] MEDS ORDERED: Melatonin 3 MG TAB PO PRN (08:49)
--- NOTE | 2018-01-10 10:59 | PDOC.PN ---
- Subjective Encounter Start Date: 01/10/18 Encounter Start Time: 10:58 Subjective: alert, minimal discomfort - Objective Resuscitation Status: Resuscitation Status DNR:Do Not Resuscitate MAR Reviewed: Yes Vital Signs & Weight: Vital Signs (12 hours) Temp Pulse Resp BP Pulse Ox 01/10/18 07:35 98.4 F 100 20 106/61 93 L 01/10/18 04:00 97.6 F 98 16 122/70 96 01/10/18 00:00 97.3 F L 100 16 119/69 95 Weight Admit Weight 93 lb Weight 93 lb 7.616 oz Most Recent Monitor Data Heart Rate from ECG 98 NIBP 100/63 NIBP BP-Mean 69 Respiration from ECG 27 SpO2 98 I&O: 01/09/18 01/10/18 01/11/18 06:59 06:59 06:59 Intake Total 1940.6 1788 Output Total 540 928 Balance 1400.6 860 Result Diagrams: 01/10/18 05:09 01/10/18 05:09 Phys Exam - Physical Examination feeding tube through nose Neck: no JVD Respiratory: clear to auscultation bilateral Cardiovascular: RRR, no significant murmur Gastrointestinal: soft, positive bowel sounds minimal tenderness Musculoskeletal: no edema Dx/Plan (1) Diverticulitis of intestine, part unspecified, with perforation and abscess without bleeding Code(s): K57.80 - DVTRCLI OF INTEST, PART UNSP, W PERF AND ABSCESS W/O BLEED Status: Acute Comment: post op (2) Lactic acidosis Code(s): E87.2 - ACIDOSIS Status: Acute (3) Sepsis Code(s): A41.9 - SEPSIS, UNSPECIFIED ORGANISM Status: Acute Qualifiers: Sepsis type: sepsis due to unspecified organism Qualified Code(s): A41.9 - Sepsis, unspecified organism (4) Essential hypertension Code(s): I10 - ESSENTIAL (PRIMARY) HYPERTENSION Status: Chronic (5) Peritonitis Code(s): K65.9 - PERITONITIS, UNSPECIFIED Status: Acute - Plan enteral feedings -: cont iv antibx -: BP stable off meds, monitor -: analgesia as needed * .
[2018-01-10] MEDS: traMADol HCl 50 MG TAB PER TUBE PRN (12:27)
[2018-01-10] MEDS: HYDROcodone/Acetaminophen 5/325 mg Tablet PO PRN ×2 (14:37→22:38)
--- NOTE | 2018-01-10 16:46 | RAD ---
ABDOMEN ONE VIEW: 01/10/18 HISTORY: Feeding tube placement. COMPARISON: 01/09/18 FINDINGS/IMPRESSION: The visualized bowel gas pattern is nonspecific. Metallic tip of a Dobhoff feeding catheter overlies the left upper quadrant at the expected location of the gastric cardia. Tube should probably be advis ed slightly for better positioning. Other tubes appear unchanged in position. POS: [facility]
[2018-01-11] MEDS: Piperacillin/Tazobactam 3.375 GM in Sodium Chloride 0.9% 100 ML IVPB SCH ×4 (03:17→22:10)
[2018-01-11] MEDS: 1/2 NS w/KCL 20 mEq 1,000 ML IV SCH (04:15)
[2018-01-11 05:53] LABS: Hemoglobin 9.6 g/dL (12.0-16.0); Mean Corpuscular HGB CONC 30.6 g/dL (32.0-36.0); Mean Corpuscular Hemoglobin 26.4 pg (27.0-31.0); Mean Corpuscular Volume 86.5 fl (81.0-99.0); Mean Platelet Volume 7.4 fL (7.4-10.4); Platelet Count 470 thou/uL (130-400); Red Blood Cell (RBC) Count 3.64 mill/uL (4.20-5.40); White Blood Cell (WBC) Count 55.7 thou/uL (4.8-10.8)
[2018-01-11 06:30] LABS: Acanthocytes SLIGHT = 1-5 cells (100X) (None Seen); Band 10 % (5-11); Burr Cells SLIGHT = 2-5 cells (100X) (0-1/hpf); Eosinophils 1 % (0-10); Lymphocytes 4 % (21-51); MDiff Complete? YES; Monocytes 3 % (0-10); Neutrophil 82 % (42-75); PLT Morphology Comment Appears Increased
[2018-01-11 06:32] LABS: Toxic Granulation SLIGHT
[2018-01-11 07:00] LABS: Anion Gap 17 mmol/L (10-20); BUN (Urea Nitrogen) 20 mg/dL (9.8-20.1); Calc. Creatinine Clearance 39 mL/min (70-130); Calcium 7.9 mg/dL (7.8-10.44); Carbon Dioxide 15 mmol/L (23-31); Chloride 105 mmol/L (98-107); Estimated GFR-MDRD 72; Glucose 47 mg/dL (83-110); Magnesium 2.2 mg/dL (1.6-2.6); Phosphorus 3.3 mg/dL (2.3-4.7); Potassium 5.4 mmol/L (3.5-5.1); Sodium 132 mmol/L (136-145)
[2018-01-11] MEDS ORDERED: Dextrose 50% Abboject 50 ML SYRINGE ONE (07:22)
--- NOTE | 2018-01-11 08:09 | RAD ---
UPRIGHT PORTABLE CHEST 1 VIEW: Date: 01/11/18 HISTORY: 82-year-old female with history of shortness of breath. COMPARISON: 01/08/18. FINDINGS: Dobbhoff feeding tube in place. There are bilateral pleural effusions and bilateral patchy interstiti al and reticulonodular parenchymal changes in the mid and upper lung zones bilaterally, which have wo rsened when compared to the prior study of 01/08/18. Bone demineralization with marked vertical heigh t loss of one of the lower thoracic and upper lumbar vertebral bodies. IMPRESSION: Worsening bilateral pleural effusions and patchy interstitial and reticulonodular parenchymal changes in the mid and upper lung zones, evidence for bilateral pneumonia and worsening pleural effusions. CODE T. POS: [facility]
[2018-01-11 08:34] LABS: CO2 Tension 36.9 mmHg (35.0-45.0); pH, Arterial 7.33 (7.35-7.45)
[2018-01-11 08:35] LABS: ALV-art Gradient 237.675 (0-20); Actual Bicarbonate (HCO3a) 19.2 mEq/L (22-26); Base Excess (BEa) -6.1 mEq/L (0 (+/-) 2.5); Calcium, Ionized 1.1 mmol/L (1.12-1.30); Hematocrit-ABG 32.1 % (36.0-47.0); Hemoglobin (Hb) 8.3 g/dL (12.0-16.0); O2 Tension (PaO2) 70.2 mmHg (80.0-100.0); Puncture Site RRA
--- NOTE | 2018-01-11 08:39 | PDOC.PN ---
- Subjective Encounter Start Date: 01/11/18 Encounter Start Time: 08:37 Subjective: called for low O2 sat, now 93% on 50 5 FIO2 - Objective Resuscitation Status: Resuscitation Status DNR:Do Not Resuscitate Vital Signs & Weight: Vital Signs (12 hours) Temp Pulse Resp BP Pulse Ox 01/11/18 07:47 97.7 F 92 20 126/73 85 L 01/11/18 04:00 97.4 F L 95 22 H 176/81 H 88 L 01/11/18 00:57 97.6 F 92 20 116/64 01/10/18 23:15 95 Weight Admit Weight 93 lb Weight 93 lb 7.616 oz Most Recent Monitor Data Heart Rate from ECG 98 NIBP 100/63 NIBP BP-Mean 69 Respiration from ECG 27 SpO2 98 I&O: 01/10/18 01/11/18 01/12/18 06:59 06:59 06:59 Intake Total 1788 3650 Output Total 928 775 Balance 860 2875 Result Diagrams: 01/11/18 04:39 01/11/18 04:39 Additional Labs: Accuchecks 01/11/18 08:29 POC Glucose 252 H Radiology Reviewed by me: Yes (cxr- adverse infiltrates, pleural fluid) Phys Exam - Physical Examination Neck: no JVD scatterd rales, diffuse wheezes Cardiovascular: RRR, no significant murmur Gastrointestinal: soft mild tenderness, quiet Musculoskeletal: edema present Dx/Plan (1) Diverticulitis of intestine, part unspecified, with perforation and abscess without bleeding Code(s): K57.80 - DVTRCLI OF INTEST, PART UNSP, W PERF AND ABSCESS W/O BLEED Status: Acute Comment: post op (2) Lactic acidosis Code(s): E87.2 - ACIDOSIS Status: Acute (3) Sepsis Code(s): A41.9 - SEPSIS, UNSPECIFIED ORGANISM Status: Acute Qualifiers: Sepsis type: sepsis due to unspecified organism Qualified Code(s): A41.9 - Sepsis, unspecified organism (4) Essential hypertension Code(s): I10 - ESSENTIAL (PRIMARY) HYPERTENSION Status: Chronic (5) Peritonitis Code(s): K65.9 - PERITONITIS, UNSPECIFIED Status: Acute (6) Acute respiratory failure with hypoxia Code(s): J96.01 - ACUTE RESPIRATORY FAILURE WITH HYPOXIA Status: Acute (7) Leukemoid reaction Code(s): D72.823 - LEUKEMOID REACTION Status: Acute - Plan move to CCU, blood and urine C&S, add vancomycin, levaquin -: duoneb q4h, O2 to keep sat> 90 -: discuss with Dr Espinoza * .
[2018-01-11] MEDS ORDERED: Vancomycin HCl 1 GM in Sodium Chloride 0.9% 250 ML 250 ML IVPB SCH (09:00)
--- NOTE | 2018-01-11 09:50 | PRG ---
DATE OF SERVICE: 01/11/2018 SUBJECTIVE: Ms. Hagan is seen this morning with Maggie Pena PA-C. She has a history of a Gra ham patch of antral ulcer repair by Dr. Espinoza now with progressive worsening respiratory insufficienc y. She is on facemask. Could not complain of abdominal pain, but she has persistently and significa nt elevation of her white blood cell count. Her bandemia has resolved. PHYSICAL EXAMINATION: VITAL SIGNS: Her pulse is 92, blood pressure 126/73 but her O2 sat is 90% on a facemask. KRIS has put out 50 and 25 for the shift. Urine output is adequate at 550 for the shift. CHEST: She has bilateral coarse breath sounds and crackles with decreased respiratory effort. HEART: Regular rate and rhythm. ABDOMEN: Diffusely tender. Midline wound is healing well. It has got Dermabond. Left-sided KRIS stephanie in is serosanguineous. Right side is purulent cloudy. LABORATORY DATA: White cell count is 55 with no bands, hemoglobin 9.6, her platelet count is 470. S odium 132, potassium 5.4, creatinine 0.77, glucose is 47. Repeat 252. ASSESSMENT: Worsening respiratory insufficiency, abdominal pain, status post Ivan patch of antral ulcer, no significant history of lung disease. PLAN: She will be moved to the ICU. I have discussed with Dr. Juan Torres, who will see her and wi ll check CT of the abdomen with p.o. contrast through her Dobbhoff tube.
[2018-01-11] MEDS: Vancomycin HCl 750 MG in Sodium Chloride 0.9% 250 ML 250 ML IVPB SCH (10:35)
[2018-01-11] MEDS: traMADol HCl 50 MG TAB PER TUBE PRN (11:03)
[2018-01-11] MEDS ORDERED: Meclizine HCl 25 MG TAB PO PRN (11:34)
[2018-01-11] MEDS ORDERED: Iopamidol 370 76% 50 ML VIAL FS ONE (13:09)
--- NOTE | 2018-01-11 13:34 | CT ---
CT OF ABDOMEN AND PELVIS PERFORMED WITHOUT CONTRAST ENHANCEMENT: Date: 01/11/18 HISTORY: Surgical repair of perforation. Follow-up. Oral contrast was requested by referring physician. No IV contrast. COMPARISON: 01/08/18 study. FINDINGS: There are moderate bilateral pleural effusions, right larger than left, with bibasilar parenchymal jordan ng changes with air bronchograms, consistent with atelectasis or infiltrate. Calcified right hilar ly mph nodes are incidentally noted. The liver and spleen appear unremarkable. Pancreas region also appears unremarkable. The gallbladder has been removed. There is a surgical drain with the tip in the lorenza hepatis region. There is also a Dobbhoff feeding tube within the stomach. The fluid surrounding the liver capsule is almost complete ly resolved. Right and left adrenal glands are normal. There is some mild right-sided hydronephrosis. The bladder is distended. The dilatation of the right collecting system is more pronounced on the prior exam. Min imal dilatation of the left collecting system is seen. This could be on the basis of a somewhat diste nded bladder. CT of pelvis was performed without contrast enhancement. The air and fluid collection which was seen along the left side of the pelvis and left iliacus muscle region with air actually extending lateral to the femoral vessels is reduced in size as compared to the prior exam. There are surgical drains in place. There is still some wall thickening to the rectum and sigmoid region noted. I do not see any signs of extravasation of contrast. Minimal free air is visualized along the anterior abdomen. Multilevel compression fractures are again seen. Chronic appearing sacral insufficiency fractures are noted. IMPRESSION: 1. Postoperative changes of the abdomen. There are surgical drains now in place. I do not see any ar eas where there is any extravasation of the oral contrast. There is persistent wall edema change in t he rectum and sigmoid colon, and lesser changes in the descending colon. The air and fluid collection along the left side of the pelvis is reduced in size. 2. Mild dilatation of the right renal collecting system. This may be just on the basis of a somewhat distended bladder. 3. Development of moderate bilateral pleural effusions with bibasilar atelectasis or infiltrate. POS: [facility]
[2018-01-11 14:14] LABS: Lactic Acid 3.4 mmol/L (0.5-2.2)
--- NOTE | 2018-01-11 16:24 | PRG ---
DATE OF SERVICE: 01/11/2018 SUBJECTIVE: Ms. Hagan is postoperative day #3 following laparotomy for perforated peptic ulcer. She was treated by Dr. Espinoza on with laparotomy and repair of the ulcer with a Ivan patch. To day, she has had a decline with respiratory compromise and was transferred to the intensive care unit . A CT scan obtained by Dr. Medel reveals no definite evidence of leak. There is soupy appearing material draining from the upper drain while serous material is draining from the lower drain. It is noted that her white blood cell count has risen today from 35.9 yesterday to 55.7 today. Upon evaluation today, she is tachycardic with heart rate of 105. PHYSICAL EXAMINATION: VITAL SIGNS: Currently, her blood pressure is 117/71, oxygen saturation is 96% on 50% inspired oxyge n. She is however breathing with accessory muscles and appears to be struggling to breathe appropria tely. She is able to cough, but in a nonproductive fashion. IMAGING DATA: CT scan revealed consolidation of bilateral lower lobes. ASSESSMENT: She has what appears to be progressive respiratory compromise. She does not appear to h ave peritonitis currently, but she is using her abdominal muscles to breathe, which makes her abdomin al exam difficult. I suspect that she will have progressive respiratory failure without intervention. I spoke with her daughter, Maria Elena in [place]. I explained the situation currently. I also explained to her mother has a DO NOT RESUSCITATE order in place. I told her that I suspect that her mother's situation is tempo rary and that appropriate respiratory support would allow her to recover from this current situation. Since the patient is confused and difficult to understand when I conversed with her, I do not belie ve she is currently competent to make her own decisions and therefore defer to the decision of her herberth heck, which I believe is appropriate. I have communicated this with Dr. Torres who agrees that the patient should be intubated for support. Plan is to proceed with intubation and ventilatory support at this time. Her DO NOT RESUSCITATE order will be suspended per daughter's wish currently.
[2018-01-11] MEDS ORDERED: Midazolam HCl 2 mg/2 ml Vial ONE (16:28)
[2018-01-11] MEDS ORDERED: Propofol 1,000 MG/100 ML VIAL IV ONE (16:39)
[2018-01-11] MEDS ORDERED: Propofol BOLUS 1,000 MG/100 ML VIAL IV PRN (16:54)
[2018-01-11] MEDS ORDERED: DISCONTINUE PREVIOUS NARCOTIC PAIN MEDICATIONS AND BENZODIAZEPINES FS SCH (16:54)
[2018-01-11] MEDS ORDERED: Fentanyl BOLUS 250 ML IVPB PRN (16:54)
[2018-01-11] MEDS ORDERED: Lorazepam 2 MG/ML VIAL SLOW IVP PRN (16:54)
[2018-01-11] MEDS ORDERED: Fluconazole In NaCl,Iso-Osm 400 MG in Premix Bag 1 BAG IVPB SCH (17:00)
[2018-01-11 17:25] LABS: Actual Bicarbonate (HCO3a) 18.8 mEq/L (22-26); Base Excess (BEa) -5.3 mEq/L (0 (+/-) 2.5); CO2 Tension 30.6 mmHg (35.0-45.0); Hematocrit-ABG 29.2 % (36.0-47.0); Hemoglobin (Hb) 7.3 g/dL (12.0-16.0); O2 Tension (PaO2) 75.9 mmHg (80.0-100.0); pH, Arterial 7.41 (7.35-7.45)
[2018-01-11 17:26] LABS: Calcium, Ionized 1.1 mmol/L (1.12-1.30); Puncture Site RBRACH
[2018-01-11 20:11] LABS: H. pylori IgA ABS 18.3 units (0.0-8.9); H. pylori IgG ABS 0.96 (0.00-0.79); H. pylori IgM ABS Less than 9.0 units (0.0-8.9)
--- NOTE | 2018-01-11 21:35 | OP ---
01/11/2018 PROCEDURE: Intubation fiberoptically with tracheobronchial inspection. DRAWER IN JACQUARD LOOM: Juan Torres M.D. PROCEDURE IN DETAIL: The patient was given 1 mg of Versed. She became somnolent with that. Bite block was placed in her mouth. Tongue was so dry. It was bleeding with just simple contact with the bronchoscope. The scope was passed into her posterior pharyngeal space. Retained saliva was suctioned clear. The cords were visualized. The scope was easily passed through into the trachea and the endotracheal tube 7.5 was advanced to 23 cm above the main bridgette. Tracheobronchial tree was then inspected. There were no endobronchial lesions were seen on either lung. The scope was withdrawn. She was connected to mechanical ventilation and more deeply sedated. Blood gas post-intubation showed pH 7.41, CO2 30, pO2 of 75. MTDD
--- NOTE | 2018-01-11 21:37 | CON ---
DATE OF CONSULTATION: 01/11/2018 HISTORY OF PRESENT ILLNESS: Ms. Hagan is an 82-year-old female that had a perforated ulcer repai r. She is found to be in respiratory distress today and transferred to the Critical Care Unit. At [facility], she is oriented and at time, she is unable to give an accurate history. She has undergone CT scanning of her abdomen. Her bladder was very distended. She did not have a Fo jade, and one has been placed. Bilateral pleural effusions were seen. No abscess was seen. No free air was seen. She has been evaluated by me, probably a total of 6 times today. She was also seen by Tim Hughes. Dr. Bello had multiple conversations with different family, may have decide to reverse her code status to FULL RESUSCITATION. I have recommended intubation. PAST MEDICAL HISTORY: Remarkable for hypertension, vertigo, and compression fracture. She is actual ly having vertigo in the ICU, so I have started some Antivert to be used sublingually. PAST SURGICAL HISTORY: 1. History of a laparoscopic cholecystectomy. 2. History of herniorrhaphy bilaterally. 3. History of back surgery. 4. History of colonoscopy. SOCIAL HISTORY: Nonsmoker, nondrinker, nondrug user. ALLERGIES: No drug allergies. FAMILY HISTORY: Negative for lung disease in early age. SOCIAL HISTORY: She is . She lives at home. She ambulates with a walker. She apparently wa nted to be a DO NOT RESUSCITATE patient on admission. I talked to her about this and explained to he r that intubation would ideally be a short period of time and she was agreeable to that. MEDICATIONS: Prior to admission, unknown. MEDICATIONS: Here have been reviewed. PHYSICAL EXAMINATION: VITAL SIGNS: She is tachypneic with a respiratory rate in the 30s, heart rates in the 90s, blood pre ssure 140/65, oximetry is 100%. HEENT: Pupils are equal. Sclerae is anicteric. NECK: Supple. LUNGS: Remarkable for coarse equal breath sounds. HEART: Regular rhythm. ABDOMEN: Distended and diffusely mildly tender. She still has surgical drains in place. EXTREMITIES: No clubbing, cyanosis, or edema. NEUROLOGIC: Nonfocal. LABORATORY DATA: White count 55.7 with 10% bands, hemoglobin 9.6, platelets 470,000. Sodium 132, po tassium 5.4, chloride 105, bicarbonate 15, BUN 20, creatinine 0.7, glucose 47. IMPRESSION: Abdominal sepsis, most likely. Chest radiograph did not show anything suggestive of pne umonia. PLAN: Antimicrobial therapy, serial glucose checked since her glucose 47 this morning, intubation. Surgery does not feel she has a surgical abdomen at this point in time. I will be happy to follow wi th the other physicians caring for her. Critical care time today with multiple exams throughout the day total of 80 minutes, independent of t he procedure.
[2018-01-12] MEDS: Morphine 4 MG/ML VIAL SLOW IVP PRN (02:18)
[2018-01-12] MEDS: Propofol 1,000 MG/100 ML VIAL IV PRN ×3 (02:19→21:42)
[2018-01-12] MEDS: Piperacillin/Tazobactam 3.375 GM in Sodium Chloride 0.9% 100 ML IVPB SCH ×4 (02:19→20:56)
[2018-01-12 07:10] LABS: pH, Arterial 7.47 (7.35-7.45)
[2018-01-12 07:11] LABS: Actual Bicarbonate (HCO3a) 19.5 mEq/L (22-26); Base Excess (BEa) -3.7 mEq/L (0 (+/-) 2.5); CO2 Tension 27.4 mmHg (35.0-45.0); Hematocrit-ABG 25.1 % (36.0-47.0); Hemoglobin (Hb) 6.9 g/dL (12.0-16.0); O2 Tension (PaO2) 83.3 mmHg (80.0-100.0)
[2018-01-12 07:12] LABS: Calcium, Ionized 1.1 mmol/L (1.12-1.30); Puncture Site RBRACH
[2018-01-12] MEDS: Fluconazole In NaCl,Iso-Osm 200 MG in Premix Bag 1 BAG IVPB SCH (08:29)
[2018-01-12 09:43] LABS: Anion Gap 12 mmol/L (10-20); BUN (Urea Nitrogen) 10 mg/dL (9.8-20.1); Calc. Creatinine Clearance 50 mL/min (70-130); Calcium 7.2 mg/dL (7.8-10.44); Carbon Dioxide 19 mmol/L (23-31); Chloride 108 mmol/L (98-107); Estimated GFR-MDRD Greater than 90; Glucose 80 mg/dL (83-110); Potassium 3.7 mmol/L (3.5-5.1); Sodium 135 mmol/L (136-145)
--- NOTE | 2018-01-12 09:48 | RAD ---
PORTABLE AP CHEST XRAY: DATE: 01/12/18. HISTORY: Intubated. COMPARISON: 01/11/18. FINDINGS: Dobbhoff feeding tube is noted in place, but the tip overlies the expected location of the gastric fu ndus. There is a drainage catheter again seen overlying the left upper quadrant. There has been int erval placement with an endotracheal tube with the tip overlying T4 vertebral body and above the leve l of the bridgette. There is a suggestion of bilateral pleural effusions with associated atelectasis. Increased interstitial opacities are again seen in the upper lobes bilaterally which may be related t o bilateral pneumonia. Osteopenia is present. Vascular calcifications are seen in the thoracic aort a. Cardiac silhouette is stable in size. No other interval change. IMPRESSION: 1. Bilateral pleural effusions with bilateral interstitial opacities which may be related to bilater al pneumonia. Followup to resolution is recommended. 2. Interval placement of an endotracheal tube which is above the level of the bridgette. 3. Dobbhoff feeding tube is noted in place, and the tip overlies the expected location of the body o f the stomach. 4. Compression fracture involving lower thoracic and probable upper lumbar vertebral bodies. This w as seen on prior exams including CT exam on 01/08/18. POS: [facility]
[2018-01-12 09:54] LABS: Band 1 % (5-11); Hemoglobin 7.1 g/dL (12.0-16.0); Lymphocytes 3 % (21-51); MDiff Complete? YES; Mean Corpuscular HGB CONC 31.6 g/dL (32.0-36.0); Mean Corpuscular Hemoglobin 26.6 pg (27.0-31.0); Mean Corpuscular Volume 84.3 fl (81.0-99.0); Mean Platelet Volume 7.6 fL (7.4-10.4); Myelocyte 1 % (0-0); Neutrophil 95 % (42-75); Platelet Count 352 thou/uL (130-400); RBC Distribution Width 14.9 % (11.5-14.5); Red Blood Cell (RBC) Count 2.67 mill/uL (4.20-5.40); White Blood Cell (WBC) Count 23.9 thou/uL (4.8-10.8)
[2018-01-12] MEDS: Vancomycin HCl 750 MG in Sodium Chloride 0.9% 250 ML 250 ML IVPB SCH (10:38)
[2018-01-12] MEDS: Dextrose 5 %-0.45 % NaCl 1,000 ML IV SCH (11:10)
--- NOTE | 2018-01-12 11:48 | PDOC.PN ---
- Subjective Encounter Start Date: 01/12/18 Encounter Start Time: 11:45 Subjective: intubated, sedated - Objective Resuscitation Status: Resuscitation Status FULL:Full Resuscitation MAR Reviewed: Yes Vital Signs & Weight: Vital Signs (12 hours) Temp Pulse Resp BP Pulse Ox 01/12/18 10:15 72 133/53 L 01/12/18 10:00 20 01/12/18 08:00 20 01/12/18 07:22 97.8 F 80 20 100 01/12/18 07:00 97.8 F 01/12/18 06:50 86 134/55 L 01/12/18 06:00 20 01/12/18 04:00 97.9 F 20 01/12/18 02:13 109 H 01/12/18 02:00 20 01/12/18 00:08 112 H 01/12/18 00:00 98.5 F 20 Weight Admit Weight 93 lb Weight 93 lb 7.616 oz Most Recent Monitor Data Heart Rate from ECG 70 NIBP 125/50 NIBP BP-Mean 100 Respiration from ECG 20 SpO2 98 I&O: 01/11/18 01/12/18 01/13/18 06:59 06:59 06:59 Intake Total 3650 1874 0 Output Total 775 1650 390 Balance 2875 224 -390 Result Diagrams: 01/12/18 09:22 01/12/18 09:22 Radiology Reviewed by me: Yes (cxr ET tube, NG tube, bilat pleural effusins) Phys Exam - Physical Examination Neck: no JVD Respiratory: clear to auscultation bilateral anterior exam only Cardiovascular: RRR, no significant murmur Gastrointestinal: soft quiet Musculoskeletal: edema present Dx/Plan (1) Diverticulitis of intestine, part unspecified, with perforation and abscess without bleeding Code(s): K57.80 - DVTRCLI OF INTEST, PART UNSP, W PERF AND ABSCESS W/O BLEED Status: Acute Comment: post op (2) Lactic acidosis Code(s): E87.2 - ACIDOSIS Status: Acute (3) Sepsis Code(s): A41.9 - SEPSIS, UNSPECIFIED ORGANISM Status: Acute Qualifiers: Sepsis type: sepsis due to unspecified organism Qualified Code(s): A41.9 - Sepsis, unspecified organism (4) Essential hypertension Code(s): I10 - ESSENTIAL (PRIMARY) HYPERTENSION Status: Chronic (5) Peritonitis Code(s): K65.9 - PERITONITIS, UNSPECIFIED Status: Acute (6) Acute respiratory failure with hypoxia Code(s): J96.01 - ACUTE RESPIRATORY FAILURE WITH HYPOXIA Status: Acute (7) Leukemoid reaction Code(s): D72.823 - LEUKEMOID REACTION Status: Acute - Plan [place] [id number] -: cont iv vaanc and zosyn -: discuss with jig bore operator * .
--- NOTE | 2018-01-12 12:16 | PRG ---
DATE OF SERVICE: 01/12/2018 SUBJECTIVE: Ms. Hagan is postoperative day #4 from a laparotomy for perforated pyloric channel u lcer. Yesterday, she was transferred to the Intensive Care Unit and reintubated with obvious progres sive respiratory insufficiency. CT scan revealed no evidence of leak within her abdomen, even though one of her drains is draining a fairly thick purulent-appearing material. She was intubated by Dr. Torres. She stabilized significantly since then. She is currently resting comfortably on the ventila tor. She is sedated appropriately. PHYSICAL EXAMINATION: VITAL SIGNS: On examination, she is afebrile. Her pulse is between 72 and 100. Blood pressure is 1 25/50. Urine output for yesterday was 1100 mL. Her drains put out 60 and 90 mL respectively. LUNGS: Clear to auscultation anteriorly. ABDOMEN: Incision is well healed. She has no significant bowel sounds that I can appreciate. LABORATORY STUDIES: CBC shows that her white blood cell count has dropped from 56 down to 24. Her h emoglobin; however, dropped from 9.6 yesterday down to 7.1. Her platelet count dropped from 470 down to 350. Chemistry profile shows minimal electrolyte abnormalities, but are in general improved from yesterday. ASSESSMENT: The patient appears stabilized with a support of her pulmonary status with intubation an d ventilator management. For now, she will continue her IV fluids, IV antibiotics, and ventilator fermin pport. We may need to consider a central line placement and TPN if this persists. For now, I will r emove her Dobbhoff tube, as it is within the stomach and replace it with a nasogastric tube for appro priate decompression.
--- NOTE | 2018-01-12 20:09 | PRG ---
DATE OF SERVICE: 01/12/2018 SUBJECTIVE: Ms. Hagan is hemodynamically stable overnight. Her temperature has been normal. Sh gracy has not been febrile since she has been in the ICU, heart rate 74, respiratory 21, oximetry is 107, blood pressure 147/59. OBJECTIVE: LUNGS: Clear. HEART: Regular rhythm, no S3. ABDOMEN: Soft and diffusely tender. EXTREMITIES: Without asymmetry. NEUROLOGIC: Nonfocal. LABORATORY DATA: White count has gone from 55,000-23,000, hemoglobin 7.1, platelets 352. Sodium 135 , potassium 3.7, chloride 108, bicarbonate 19, BUN 10, creatinine 0.6. Intake and output is positive 224. IMPRESSION: Clinical peritonitis. Drainage culture yesterday is showing gram positive cocci in pairs and chains. She is on vancomycin as well as Zosyn. She appears to be clinically much better than she was yesterday. Diflucan was also added. Since her acid base disorder appears to be improving (pH of 7.47, CO2 of 27, pO2 of 83). May be able to consider decreasing ventilatory support tomorrow or even extubating just depending on her clinica l condition. Chest radiograph today was reviewed. There is no interval development of ARDS, although she does have bilateral pleural effusion as expect ed with her peritonitis. Critical care time was 30 minutes.
[2018-01-13] MEDS: Morphine 4 MG/ML VIAL SLOW IVP PRN (01:48)
[2018-01-13] MEDS: Dextrose 5 %-0.45 % NaCl 1,000 ML IV SCH ×2 (01:59→14:07)
[2018-01-13] MEDS: Piperacillin/Tazobactam 3.375 GM in Sodium Chloride 0.9% 100 ML IVPB SCH ×4 (02:00→20:23)
[2018-01-13 05:00] LABS: ALT (SGPT) 17 U/L (8-55); AST (SGOT) 19 U/L (5-34); Albumin 2.1 g/dL (3.4-4.8); Alkaline Phosphatase 120 U/L (40-150); Anion Gap 11 mmol/L (10-20); BUN (Urea Nitrogen) 7 mg/dL (9.8-20.1); Bilirubin, Total 0.5 mg/dL (0.2-1.2); Calc. Creatinine Clearance 51 mL/min (70-130); Calcium 7.4 mg/dL (7.8-10.44); Carbon Dioxide 21 mmol/L (23-31); Chloride 109 mmol/L (98-107); Estimated GFR-MDRD Greater than 90; Globulin 2.3 g/dL (2.4-3.5); Glucose 99 mg/dL (83-110); Potassium 3.2 mmol/L (3.5-5.1); Protein, Total 4.4 g/dL (6.0-8.3); Sodium 138 mmol/L (136-145)
[2018-01-13 05:04] LABS: Band 4 % (5-11); Eosinophils 2 % (0-10); Hemoglobin 7.1 g/dL (12.0-16.0); Lymphocytes 5 % (21-51); MDiff Complete? YES; Mean Corpuscular HGB CONC 32.3 g/dL (32.0-36.0); Mean Corpuscular Hemoglobin 26.4 pg (27.0-31.0); Mean Corpuscular Volume 81.9 fl (81.0-99.0); Mean Platelet Volume 7.6 fL (7.4-10.4); Monocytes 3 % (0-10); Neutrophil 86 % (42-75); Platelet Count 372 thou/uL (130-400); RBC Distribution Width 14.9 % (11.5-14.5); Red Blood Cell (RBC) Count 2.69 mill/uL (4.20-5.40); Toxic Granulation MODERATE; White Blood Cell (WBC) Count 29.3 thou/uL (4.8-10.8)
[2018-01-13] MEDS: Propofol 1,000 MG/100 ML VIAL IV PRN ×2 (05:51→21:11)
[2018-01-13] MEDS: Fluconazole In NaCl,Iso-Osm 200 MG in Premix Bag 1 BAG IVPB SCH (08:25)
[2018-01-13 10:21] LABS: Vancomycin, Trough 6.7 ug/mL
[2018-01-13] MEDS ORDERED: Potassium Chloride 40 MEQ in Premix Bag 1 BAG IVPB PRN (10:51)
[2018-01-13] MEDS ORDERED: Potassium Chloride 20 MEQ TAB PO PRN (10:51)
[2018-01-13] MEDS ORDERED: Potassium Phosphate 9 MMOL in Sodium Chloride 0.9% 100 ML IVPB PRN (10:51)
[2018-01-13] MEDS ORDERED: Potassium Chloride 40 MEQ in Sodium Chloride 0.9% 250 ML 250 ML IVPB PRN (10:51)
[2018-01-13] MEDS ORDERED: Potassium Phosphate 12 MMOL in Sodium Chloride 0.9% 250 ML 250 ML IV PRN (10:51)
[2018-01-13] MEDS ORDERED: Magnesium 2 GM/NS 0.9% 100 ML 2 GM in Premix Bag 1 BAG IVPB PRN (10:51)
[2018-01-13] MEDS ORDERED: Potassium Phosphate 15 MMOL in Sodium Chloride 0.9% 250 ML 250 ML IV PRN (10:51)
[2018-01-13] MEDS ORDERED: Magnesium Oxide 400 MG TAB PO PRN ×2 (10:51)
[2018-01-13] MEDS ORDERED: CCU ELECTROLYTE REPLACEMENT PROTOCOL FS PRN (10:51)
--- NOTE | 2018-01-13 11:42 | RAD ---
PORTABLE AP CHEST XRAY: DATE: . HISTORY: On a ventilator. Followup evaluation. COMPARISON: 01/12/18. FINDINGS: Endotracheal tube remains in place and unchanged in position. The Dobbhoff feeding tube has been rem kaylee, and there has been interval placement of a nasogastric tube which courses into the left upper q uadrant, but the tip is not visualized. Radiopaque catheter again overlies the left upper quadrant o f the abdomen. There are bilateral pleural effusions with a small right and moderate-sized left pleu ral effusions with associated atelectasis. Cardiac silhouette is stable in size. Pulmonary vasculat ure is at the upper limits of normal. There is diffuse osteopenia. IMPRESSION: 1. Bilateral pleural effusions and atelectasis larger in size on the left. 2. Interval removal of the Dobbhoff feeding tube with placement of a nasogastric tube. 3. Endotracheal tube is stable in position. POS: [facility]
[2018-01-13] MEDS: Vancomycin HCl 750 MG in Sodium Chloride 0.9% 250 ML 250 ML IVPB SCH ×2 (11:44→22:26)
--- NOTE | 2018-01-13 14:13 | PRG ---
DATE OF SERVICE: 01/13/2018 SUBJECTIVE: Ms. Hagan remains in the Intensive Care Unit. She is postoperative day #5 from a la parotomy for perforated pyloric channel ulcer. She was intubated in the Intensive Care Unit 2 days a go for progressive respiratory failure. She remains on the ventilator currently and is followed by Tim Torres. She is currently resting comfortably on the ventilator and is sedated appropriately. OBJECTIVE: On examination, she is afebrile. Her pulse currently is 64 with a blood pressure of 106/ 38. Oxygen saturation is 99% on 30% inspired oxygen. Her urine output for yesterday was 1600. Her right-sided abdominal drain, which extends into the pelvis, put out 35 mL of creamy-appearing materia l. A left-sided drain is in the upper abdomen and drained 150 mL of serous fluid. She did have a felicita wel movement this morning as well. Her lungs are clear to auscultation. Cardiac is regular rate and rhythm. Abdomen is soft with hypoactive bowel sounds. Incision is healing nicely. LABORATORY STUDIES: Her CBC reveals a white blood cell count of 29.3, up from 24 yesterday. Hemoglo bin is stable at 7.1. Chemistry profile reveals that her potassium is low at 3.2. Her CO2 is low at 21. Her albumin is quite low at 2.1; this is down from 2.9 on the 8th. ASSESSMENT: The patient remains ventilator dependent. She has stabilized on the ventilator at this time. She continues to receive appropriate IV antibiotics. I added Diflucan yesterday, which is for 2/, her cultures reveal Nelda from within the drain fluid. There are 2 separate gram-negative ro ds that have not been speciated yet. Since she will not likely be eating soon and she has a recent g astric perforation, I would recommend a central line for TPN initiation. PROCEDURE: The patient was placed in Trendelenburg position in the Intensive Care Unit. Right chest was prepped with ChloraPrep, draped in sterile fashion, locally anesthetized. Large gauge needle wa s passed under the clavicle and initial pass into the subclavian vein. Guidewire was passed through the needle and needle was removed. Skin was incised, tract was dilated, and 7-Italian triple-lumen ca theter was passed over the wire uneventfully. Each of the 3 lumens aspirated blood freely and was fl ushed with heparinized saline. Catheter was secured at skin exit site with 3-0 silk suture. Sterile occlusive dressing was applied. Post-procedure chest x-ray documents appropriate position of the ca theter.
--- NOTE | 2018-01-13 15:28 | PRG ---
DATE OF SERVICE: 01/13/2018 SUBJECTIVE: Ms. Malaika Hagan will awaken. She has abdominal distention. Her hemodynamics have been stable. OBJECTIVE: VITAL SIGNS: Respiratory rate 16, blood pressure 108/52, heart rate 71. LUNGS: Clear anteriorly. HEART: Regular rhythm. ABDOMEN: Soft. IMAGING: Chest radiograph still shows effusions as expected. LABORATORY DATA: White count 29.3, hemoglobin 7.1, platelets 372,000. Sodium 138, potassium 3.2, chloride 109, bicarbonate 21, BUN 7, creatinine 0.59. We switched her to fentanyl drip to hopefully help control her pain, try to give her low dose continu ous fentanyl to see if that controls her abdominal discomfort. It has been extubated with much disco mfort as she has. IMPRESSION: 1. Peritonitis. 1. Status post perforated ulcer. 2. Blood loss anemia. She is approaching a point where she probably needs to be transfused given th at she is 82 years of age. 3. Hypoalbuminemia. 4. Deconditioning. PLAN: Continue supportive care. We will decrease ventilatory support. We will try fentanyl and see if this helps with controlling her discomfort. Critical care time was 30 minutes.
--- NOTE | 2018-01-13 15:41 | RAD ---
CHEST 1 VIEW: Date: 01/13/18 HISTORY: Central line placement. COMPARISON: 01/13/18 at 0504 hours. FINDINGS: Redemonstration of endotracheal and nasogastric tube. There are pleural and parenchymal changes in th e lung bases, similar to the prior exam. Stable atherosclerosis. Interval placement of right-sided ca theter, with the distal tip presumed to be in the superior vena cava. Catheter placement appears to b e via a subclavian approach. No pneumothorax. IMPRESSION: Lines and tubes as above. No pneumothorax. POS: [facility]
--- NOTE | 2018-01-13 16:32 | PDOC.PN ---
- Subjective Encounter Start Date: 01/13/18 Encounter Start Time: 16:31 Patient seen and examined,no changes in the past 24 hours per nursing staff. No family at bedside. - Objective Resuscitation Status: Resuscitation Status FULL:Full Resuscitation Vital Signs & Weight: Vital Signs (12 hours) Temp Pulse Resp BP Pulse Ox 01/13/18 16:00 98.5 F 16 01/13/18 15:44 62 102/52 L 01/13/18 14:00 16 01/13/18 12:00 13 01/13/18 10:42 78 115/52 L 01/13/18 10:00 15 01/13/18 08:00 20 01/13/18 07:33 75 114/48 L 01/13/18 07:23 97.8 F 77 20 100 01/13/18 07:00 97.8 F 01/13/18 06:00 23 H Weight Admit Weight 93 lb Weight 109 lb 5.588 oz Most Recent Monitor Data Heart Rate from ECG 64 NIBP 99/50 NIBP BP-Mean 56 Respiration from ECG 10 SpO2 97 I&O: 01/12/18 01/13/18 01/14/18 06:59 06:59 06:59 Intake Total 1874 2057 0 Output Total 1650 1930 515 Balance 224 127 -515 Result Diagrams: 01/13/18 04:00 01/13/18 04:00 Phys Exam - Physical Examination Constitutional: NAD intubated HEENT: PERRLA, sclera anicteric intubated, sedated Neck: no nodes, no JVD Respiratory: no wheezing, no rales, no rhonchi Cardiovascular: RRR, no significant murmur, no rub Gastrointestinal: soft, non-tender, no distention Musculoskeletal: no edema, pulses present intubated, sedated Deviation from normal: intubated, sedated Skin: no rash, normal turgor Dx/Plan (1) Acute respiratory failure with hypoxia Code(s): J96.01 - ACUTE RESPIRATORY FAILURE WITH HYPOXIA Status: Acute (2) Diverticulitis of intestine, part unspecified, with perforation and abscess without bleeding Code(s): K57.80 - DVTRCLI OF INTEST, PART UNSP, W PERF AND ABSCESS W/O BLEED Status: Acute Comment: post op (3) Peritonitis Code(s): K65.9 - PERITONITIS, UNSPECIFIED Status: Acute (4) Sepsis Code(s): A41.9 - SEPSIS, UNSPECIFIED ORGANISM Status: Acute Qualifiers: Sepsis type: sepsis due to unspecified organism Qualified Code(s): A41.9 - Sepsis, unspecified organism (5) Essential hypertension Code(s): I10 - ESSENTIAL (PRIMARY) HYPERTENSION Status: Chronic - Plan * cont ventilator for now, SBT and extubation per pulmonary team * abx * BP stable * continue current plan of care with no changes for now * no family at bedside
[2018-01-13] MEDS ORDERED: Dextrose 50% Abboject 50 ML SYRINGE IVP PRN (20:18)
[2018-01-13] MEDS ORDERED: Dextrose 5% in Water 1,000 ML IV PRN (20:18)
[2018-01-14] MEDS: Dextrose 5 %-0.45 % NaCl 1,000 ML IV SCH (02:00)
[2018-01-14] MEDS: Piperacillin/Tazobactam 3.375 GM in Sodium Chloride 0.9% 100 ML IVPB SCH ×4 (02:12→20:23)
[2018-01-14 06:20] LABS: Hemoglobin 7.5 g/dL (12.0-16.0); Mean Corpuscular HGB CONC 30.5 g/dL (32.0-36.0); Mean Corpuscular Hemoglobin 25.5 pg (27.0-31.0); Mean Corpuscular Volume 83.8 fl (81.0-99.0); Mean Platelet Volume 7.8 fL (7.4-10.4); Platelet Count 401 thou/uL (130-400); RBC Distribution Width 15.2 % (11.5-14.5); Red Blood Cell (RBC) Count 2.92 mill/uL (4.20-5.40); White Blood Cell (WBC) Count 49.1 thou/uL (4.8-10.8)
[2018-01-14] MEDS: Propofol 1,000 MG/100 ML VIAL IV PRN ×2 (06:25→20:27)
[2018-01-14 06:49] LABS: Anion Gap 11 mmol/L (10-20); BUN (Urea Nitrogen) 5 mg/dL (9.8-20.1); Calc. Creatinine Clearance 60 mL/min (70-130); Calcium 7.6 mg/dL (7.8-10.44); Carbon Dioxide 21 mmol/L (23-31); Chloride 111 mmol/L (98-107); Estimated GFR-MDRD Greater than 90; Glucose 69 mg/dL (83-110); Magnesium 1.7 mg/dL (1.6-2.6); Phosphorus 3.6 mg/dL (2.3-4.7); Potassium 3.6 mmol/L (3.5-5.1); Sodium 139 mmol/L (136-145)
[2018-01-14 07:12] LABS: Actual Bicarbonate (HCO3a) 21.4 mEq/L (22-26); Base Excess (BEa) -4.4 mEq/L (0 (+/-) 2.5); CO2 Tension 43.6 mmHg (35.0-45.0); Hemoglobin (Hb) 5.8 g/dL (12.0-16.0); O2 Tension (PaO2) 54.2 mmHg (80.0-100.0); pH, Arterial 7.31 (7.35-7.45)
[2018-01-14 07:13] LABS: Calcium, Ionized 1.1 mmol/L (1.12-1.30); Puncture Site LRA
[2018-01-14 07:29] LABS: Band 8 % (5-11); Eosinophils 2 % (0-10); Lymphocytes 4 % (21-51); MDiff Complete? YES; Metamyelocyte 1 % (0-0); Monocytes 2 % (0-10); Neutrophil 83 % (42-75); PLT Morphology Comment Appears Adequate; Polychromasia SLIGHT = 2-3 cells (100X) (0-2/hpf); Toxic Granulation SLIGHT
[2018-01-14] MEDS: Pantoprazole 40 MG VIAL IVP SCH ×2 (09:05→20:23)
[2018-01-14] MEDS: Fluconazole In NaCl,Iso-Osm 400 MG in Premix Bag 1 BAG IVPB SCH (09:38)
--- NOTE | 2018-01-14 09:39 | RAD ---
PORTABLE AP CHEST: DATE: 01/14/18 HISTORY: On ventilator. Follow-up evaluation. COMPARISON: 01/13/18. FINDINGS: Endotracheal tube, nasogastric tube, and right subclavian central venous catheters remain in place an d unchanged in position. Again noted are bilateral pleural effusions and associated atelectasis. Left cardiac border is not well seen due to pleural effusion left lung base. There are bilateral increase d interstitial opacities, which could be related to either pulmonary edema or infectious process. The re is evidence of prior granulomatous disease. Diffuse osteopenia is present. Prominent vascular calc ifications are noted. There is a remote right-sided rib fracture seen. IMPRESSION: 1. Bilateral pleural effusions and atelectasis, greater on the left. 2. Increased interstitial opacities bilaterally, which may be related to either pulmonary edema or i nfectious process. 3. Osteopenia. 4. Remote lateral right-sided rib fracture. POS: [facility]
[2018-01-14] MEDS ORDERED: Sodium Chloride 0.9% 500 ML IV SCH (12:15)
[2018-01-14] MEDS: fentaNYL Citrate/PF 2,000 MCG in Sodium Chloride 0.9% 60 ML IV SCH (12:25)
[2018-01-14] MEDS: Vancomycin HCl 750 MG in Sodium Chloride 0.9% 250 ML 250 ML IVPB SCH ×2 (12:31→23:40)
[2018-01-14] MEDS ORDERED: Albumin 25% 25 GM/100 ML BOT IVPB SCH (12:39)
--- NOTE | 2018-01-14 13:10 | PRG ---
DATE OF SERVICE: 01/14/2018 Ms. Hagan has been stable overnight. PHYSICAL EXAMINATION: VITAL SIGNS: She is afebrile, respiratory rate is 14, pulse in the 90s, blood pressure 100/50. She received 500 mL fluid bolus. LUNGS: Her lungs are clear anteriorly. HEART: Regular rhythm. ABDOMEN: Abdomen is soft. EXTREMITIES: Without asymmetry or edema. NEUROLOGIC: Grossly nonfocal. She tries to talk when questions are asked. Chest radiograph shows bilateral effusions and evidence of mild edema. Her intake and output is positive 1139. I will add salt poor albumin to see if we can keep her oncotic pressure up to hopefully lead to impro vement of some of her pulmonary edema. I met with the daughter at length at the bedside and answered all of her questions. She quickly ackn owledged that her mother did not want this, but as I explained to her we are hoping that with a few d ays of mechanical ventilation we can get her through this acute illness. I would plan to extubate he r no later than Sunday. Presently her ileus and her abdominal girth are leading us to be slow to extubate her. We will make significant decrease in ventilatory support tomorrow and plan on extubat ing her Sunday if she remains reasonably stable and probably based of my conversation with the kristina damon, we will extubate her either way on Sunday. Her blood gas shows pH 7.31, CO2 43, PO2 54. Her electrolytes are essentially unremarkable. Sodium 139, potassium 3.6, chloride 111, bicarbonate 21, BUN 5, creatinine 0.59. White count went back up to 49,000 from 29,000 yesterday. She only has 8% bands on her peripheral smear. This is mostly neutrophils. I am not sure why her count drops. H er Diflucan auto adjusted down per protocol in the computer that I was not aware of. Her Diflucan caldwell s been increased back to 400 mg a day. Critical care time was 30 minutes.
[2018-01-14] MEDS ORDERED: [UNRECOGNIZED DRUG - OTHER] IV SCH (14:00)
[2018-01-14] MEDS ORDERED: POTASSIUM ACETATE IV SCH ×2 (14:00)
[2018-01-14] MEDS ORDERED: INSULIN REGULAR IV SCH (14:00)
[2018-01-14] MEDS ORDERED: [UNRECOGNIZED DRUG - OTHER] IV SCH (14:00)
[2018-01-14] MEDS ORDERED: MAGNESIUM SULFATE IV SCH (14:00)
[2018-01-14] MEDS ORDERED: CALCIUM GLUCONATE IV SCH ×2 (14:00)
--- NOTE | 2018-01-14 15:30 | PDOC.PN ---
- Subjective Encounter Start Date: 01/14/18 Encounter Start Time: 11:30 Patient seen and examined, daughter at bedside, status changed to DNR/DNI, all questions answered. No new issues overnight per nursing staff. - Objective Resuscitation Status: Resuscitation Status DNR:Do Not Resuscitate Vital Signs & Weight: Vital Signs (12 hours) Temp Pulse Resp BP Pulse Ox 01/14/18 14:20 87 115/50 L 01/14/18 14:00 16 01/14/18 13:19 71 131/62 01/14/18 12:00 98.3 F 14 01/14/18 10:45 97 01/14/18 10:00 18 01/14/18 08:00 98.3 F 78 14 100 01/14/18 07:00 98.5 F 01/14/18 06:25 100 129/64 01/14/18 06:23 96 13 93 L 01/14/18 06:00 12 01/14/18 04:06 71 01/14/18 04:00 97.7 F 16 Weight Admit Weight 93 lb Weight 109 lb 9.116 oz Most Recent Monitor Data Heart Rate from ECG 73 NIBP 115/50 NIBP BP-Mean 70 Respiration from ECG 10 SpO2 92 I&O: 01/13/18 01/14/18 01/15/18 06:59 06:59 06:59 Intake Total 2057 2661.8 600 Output Total 1930 1522 240 Balance 127 1139.8 360 Result Diagrams: 01/14/18 04:25 01/14/18 04:25 Additional Labs: Accuchecks 01/14/18 13:01 POC Glucose 91 Phys Exam - Physical Examination Constitutional: NAD HEENT: PERRLA intubated, NG tube in place Neck: no nodes, no JVD, supple Respiratory: no wheezing, no rales, no rhonchi Cardiovascular: RRR, no significant murmur, no rub Gastrointestinal: soft, non-tender, no distention slow bowel sounds Musculoskeletal: no edema, pulses present intubated sedated Lymphatic: no nodes Deviation from normal: intubated and mildly sedated Skin: no rash, normal turgor Dx/Plan (1) Acute respiratory failure with hypoxia Code(s): J96.01 - ACUTE RESPIRATORY FAILURE WITH HYPOXIA Status: Acute (2) Diverticulitis of intestine, part unspecified, with perforation and abscess without bleeding Code(s): K57.80 - DVTRCLI OF INTEST, PART UNSP, W PERF AND ABSCESS W/O BLEED Status: Acute Comment: post op (3) Peritonitis Code(s): K65.9 - PERITONITIS, UNSPECIFIED Status: Acute (4) Sepsis Code(s): A41.9 - SEPSIS, UNSPECIFIED ORGANISM Status: Acute Qualifiers: Sepsis type: sepsis due to unspecified organism Qualified Code(s): A41.9 - Sepsis, unspecified organism (5) Essential hypertension Code(s): I10 - ESSENTIAL (PRIMARY) HYPERTENSION Status: Chronic - Plan * DNR/DNI * agree with plan to monitor patient for 2 more days prior to considering extubation * patient's condition remains same as yesterday, hopefully with abx if her leukomoid reaction resolves, she may have a small change of improvement but this is the only fighting chance she has * d/w daughter at length * continue current plan of care for now, will do aggressive medical management only * case and plan d/w patient's daughter at length, she understands and agrees with this plan
[2018-01-14] MEDS: Albumin 25% 25 GM/100 ML BOT IVPB SCH ×2 (17:34→23:00)
[2018-01-14] MEDS: Heparin 5,000 UNITS/ML VIAL SC SCH (20:24)
[2018-01-14 23:02] LABS: Vancomycin, Trough 18.1 ug/mL
[2018-01-15] MEDS: Piperacillin/Tazobactam 3.375 GM in Sodium Chloride 0.9% 100 ML IVPB SCH ×4 (04:17→20:31)
[2018-01-15 05:06] LABS: Anion Gap 10 mmol/L (10-20); BUN (Urea Nitrogen) 10 mg/dL (9.8-20.1); Calc. Creatinine Clearance 43 mL/min (70-130); Calcium 7.6 mg/dL (7.8-10.44); Carbon Dioxide 20 mmol/L (23-31); Chloride 111 mmol/L (98-107); Estimated GFR-MDRD 68; Glucose 198 mg/dL (83-110); Potassium 4.1 mmol/L (3.5-5.1); Sodium 137 mmol/L (136-145)
[2018-01-15] MEDS: Albumin 25% 25 GM/100 ML BOT IVPB SCH ×3 (05:23→17:27)
[2018-01-15 05:43] LABS: Hemoglobin 5.9 g/dL (12.0-16.0); Mean Corpuscular HGB CONC 30.7 g/dL (32.0-36.0); Mean Corpuscular Hemoglobin 26.3 pg (27.0-31.0); Mean Corpuscular Volume 85.9 fl (81.0-99.0); Mean Platelet Volume 7.9 fL (7.4-10.4); Platelet Count 352 thou/uL (130-400); Red Blood Cell (RBC) Count 2.24 mill/uL (4.20-5.40); White Blood Cell (WBC) Count 29.7 thou/uL (4.8-10.8)
[2018-01-15 05:55] LABS: Band 5 % (5-11); Lymphocytes 12 % (21-51); MDiff Complete? YES; Metamyelocyte 1 % (0-0); Myelocyte 1 % (0-0); Neutrophil 81 % (42-75)
[2018-01-15] MEDS: Propofol 1,000 MG/100 ML VIAL IV PRN ×2 (06:37→17:22)
--- NOTE | 2018-01-15 06:58 | PRG ---
DATE OF SERVICE: 01/14/2018 SUBJECTIVE: Malaika Hagan is an 82-year-old female postop day #6 from exploratory laparotomy and re pair of perforated ulcer. She was started on TPN yesterday. She continues to have significant abdom inal pain. Critical care has discussed her case with her daughter and her code status has been changed to DO NOT RESUSCITATE. There were no acute overnight events. Upon my evaluation, she remains intubated and l ightly sedated. She is able to follow commands briefly. OBJECTIVE: VITAL SIGNS: T-max 98.9, pulse 71, blood pressure 131/62, respirations 16, and O2 sat 92% on 45% FiO 2. GENERAL: Elderly appearing female in no acute distress, resting in bed, intubated and sedated. NG t ube is in place with dark green output. PULMONARY: Symmetric chest rise. LUNGS: Clear to auscultation bilaterally. ABDOMEN: Soft with generalized tenderness, right lower quadrant abdominal wound with purulent draina ge. Left lower quadrant drain serosanguineous drainage. Midline incisional wound is clean, dry, and intact without erythema, fluctuance, or drainage. MUSCULOSKELETAL: Moves all extremities x4. NEUROLOGIC: . LABORATORY DATA: WBC 49.1, hemoglobin 7.5, hematocrit 24.5, platelet count 401, and 8% bandemia with 83% neutrophils. Sodium 139, potassium 3.6, chloride 111, carbon dioxide 21, BUN 5, creatinine 0.59 , glucose 69, calcium 7.6, phosphorus 3.6, magnesium 1.7. Microbiology: Two different gram negative rods, which have not yet been speciated as well as Nelda albicans. RADIOGRAPHIC FINDINGS: Chest x-ray this morning was read by Radiology with bilateral pleural effusio ns and atelectasis left greater than right, bilateral opacities/pulmonary edema. ET tube, NG tube, a nd central line are in place. ASSESSMENT: 1. Postop day #6 status post exploratory laparotomy and perforated gastric ulcer repair. 2. Acute hypoxic respiratory failure. 3. Polymicrobial intra-abdominal abscess. 4. Bilateral infiltrates with bilateral effusions, left greater than right. 5. Hypoglycemia. 6. Sepsis. PLAN: Continue broad spectrum antibiotics per Hospital Medicine and Critical Care recommendations. TPN has been changed to exclude insulin then weaning per Critical Care Medicine. Protonix drip stopp ed and changed to b.i.d. IV. Of note, patient's H. pylori antigens were positive, should the patient may get through the acute phase of her critical illness. This will need to be addressed at a later date. Follow a.m. labs. Continue supportive care as ordered. The patient has been discussed and se en by Trauma and surgical attending.
[2018-01-15 07:45] LABS: Actual Bicarbonate (HCO3a) 20.6 mEq/L (22-26); Base Excess (BEa) -6.7 mEq/L (0 (+/-) 2.5); Calcium, Ionized 1.2 mmol/L (1.12-1.30); Hematocrit-ABG 21.9 % (36.0-47.0); Hemoglobin (Hb) 6.3 g/dL (12.0-16.0); O2 Tension (PaO2) 75.4 mmHg (80.0-100.0); Puncture Site LRA; pH, Arterial 7.21 (7.35-7.45)
[2018-01-15] MEDS: fentaNYL Citrate/PF 2,000 MCG in Sodium Chloride 0.9% 60 ML IV SCH (08:02)
[2018-01-15 08:22] LABS: Magnesium 2.3 mg/dL (1.6-2.6); Phosphorus 4.1 mg/dL (2.3-4.7)
[2018-01-15] MEDS: Heparin 5,000 UNITS/ML VIAL SC SCH ×3 (09:20→20:32)
[2018-01-15] MEDS: Fluconazole In NaCl,Iso-Osm 400 MG in Premix Bag 1 BAG IVPB SCH (09:20)
[2018-01-15] MEDS: Pantoprazole 40 MG VIAL IVP SCH ×2 (09:21→20:32)
--- NOTE | 2018-01-15 09:41 | RAD ---
PORTABLE AP CHEST: Date: 01/15/18 HISTORY: On ventilator. Follow-up evaluation. COMPARISON: 01/14/18. FINDINGS: Endotracheal tube, nasogastric tube, and right subclavian central venous catheters remain in place an d unchanged in position. There is a metallic density overlying the left hilar region, probably relate d to overlying monitor lead. There are increased interstitial and alveolar opacities bilaterally, whi ch have increased from the prior exam. Bilateral pleural effusions and atelectasis are again present. Cardiac silhouette is probably enlarged. Pulmonary vasculature is mildly increased. There is diffuse osteopenia. Dense vascular calcifications seen in thoracic aorta. No other interval change. IMPRESSION: 1. Increased interstitial and alveolar opacities which do appear mildly increased from the prior sejal dy. This may be related to worsening pulmonary edema or infectious process. 2. Bilateral pleural effusions. 3. Cardiomegaly with suggestion of pulmonary vascular congestion. 4. Diffuse osteopenia. 5. Dense vascular calcifications with ectasia of the thoracic aorta. POS: OFF
[2018-01-15] MEDS: Vancomycin HCl 750 MG in Sodium Chloride 0.9% 250 ML 250 ML IVPB SCH ×2 (11:34→23:16)
--- NOTE | 2018-01-15 11:56 | PRG ---
DATE OF SERVICE: 01/15/2018 Ms. Hagan remains on the ventilator. Dr. Torres plans extubation probably tomorrow. She is not o n any tube feeds. She is having some bilious output in her NG tube. She was started on TPN. PHYSICAL EXAMINATION: VITAL SIGNS: Vital signs are stable. Blood pressure 96/52, pulse 90, respirations vent. She is afebrile. Urine output is adequate. KRIS left is putting out more serous at 150 for the last s hift. She has purulent discharge in her right drain, but it is decreased in amount to 5 per shift. LABORATORY: White cell count is down to 29, normal amount of bands, hemoglobin this morning was 5.9. No source of bleeding. She is getting blood. Creatinine is 0.81. ASSESSMENT: 1. Status post patch repair of perforated ulcer. 2. Postoperative respiratory insufficiency. CT scan showing no obvious leak. PLAN: Continue supportive care. Continue antibiotics. Hopefully, extubate tomorrow, then could sta rt on oral intake.
[2018-01-15] MEDS ORDERED: Furosemide 100 MG/10 ML VIAL SLOW IVP SCH (13:00)
--- NOTE | 2018-01-15 13:05 | PDOC.PN ---
- Subjective Encounter Start Date: 01/15/18 Encounter Start Time: 13:03 Patient seen and examined, no family at bedside, found to have very low Hgb today being transfused blood. Nurse at bedside. - Objective Resuscitation Status: Resuscitation Status DNR:Do Not Resuscitate Vital Signs & Weight: Vital Signs (12 hours) Temp Pulse Pulse Resp BP BP Pulse Ox 01/15/18 12:00 16 01/15/18 11:00 99.7 F H 01/15/18 10:40 99.1 F 109 H 16 116/60 97 01/15/18 10:18 104 H 157/67 H 01/15/18 10:17 98 14 99 01/15/18 10:16 100.6 F H 109 H 19 165/83 H 99 01/15/18 10:00 19 01/15/18 08:00 100.4 F H 112 H 19 91 L 01/15/18 07:54 100.6 F H 109 H 19 165/83 H 89 L 01/15/18 07:47 100.4 F H 113 H 13 161/69 H 91 L 01/15/18 07:11 100 127/101 H 01/15/18 07:09 89 14 94 L 01/15/18 06:00 10 L 01/15/18 04:00 98.6 F 10 L 01/15/18 02:34 95 122/51 L 01/15/18 02:00 13 Weight Admit Weight 93 lb Weight 114 lb 13.773 oz Most Recent Monitor Data Heart Rate from ECG 101 NIBP 163/88 NIBP BP-Mean 102 Respiration from ECG 20 SpO2 92 I&O: 01/14/18 01/15/18 01/16/18 06:59 06:59 06:59 Intake Total 2661.8 4910.9 1000 Output Total 1522 1105 475 Balance 1139.8 3805.9 525 Result Diagrams: 01/15/18 05:31 01/15/18 04:10 Additional Labs: Accuchecks 01/15/18 01/15/18 01/15/18 09:38 05:33 00:24 POC Glucose 123 H 90 106 01/14/18 01/14/18 18:01 13:01 POC Glucose 139 H 91 Phys Exam - Physical Examination Constitutional: NAD HEENT: PERRLA, moist MMs intubated/sedated Neck: no nodes, no JVD, supple coarse breath sounds Cardiovascular: RRR, no significant murmur, no rub Gastrointestinal: soft, non-tender, no distention, positive bowel sounds drains present Musculoskeletal: no edema, pulses present intubated/sedated Deviation from normal: intubated/sedated Skin: no rash, normal turgor Dx/Plan (1) Acute respiratory failure with hypoxia Code(s): J96.01 - ACUTE RESPIRATORY FAILURE WITH HYPOXIA Status: Acute (2) Diverticulitis of intestine, part unspecified, with perforation and abscess without bleeding Code(s): K57.80 - DVTRCLI OF INTEST, PART UNSP, W PERF AND ABSCESS W/O BLEED Status: Acute Comment: post op (3) Peritonitis Code(s): K65.9 - PERITONITIS, UNSPECIFIED Status: Acute (4) Sepsis Code(s): A41.9 - SEPSIS, UNSPECIFIED ORGANISM Status: Acute Qualifiers: Sepsis type: sepsis due to unspecified organism Qualified Code(s): A41.9 - Sepsis, unspecified organism (5) Essential hypertension Code(s): I10 - ESSENTIAL (PRIMARY) HYPERTENSION Status: Chronic - Plan * Hgb low, blood transfused for now, will monitor * BP low but stable * large volume infusion being done due to abx and albumin and PRBC transfusion, however BP remains low, patient is having good urine output and a lot of drainge from the KRIS drain, will monitor vital signs for now. MAP is adequate * ventilator per pulmonary team * extubation plans for tmrw if patient has no improvement * case and plan d/w patient's daughter yesterday, not present today at bedside
[2018-01-15] MEDS: [UNRECOGNIZED DRUG - OTHER] IV SCH (14:16)
[2018-01-15] MEDS: SODIUM ACETATE IV SCH (14:16)
[2018-01-15] MEDS: POTASSIUM PHOSPHATE IV SCH (14:16)
[2018-01-15] MEDS: POTASSIUM ACETATE IV SCH (14:16)
--- NOTE | 2018-01-15 15:53 | PRG ---
DATE OF SERVICE: 01/15/2018 OBJECTIVE: VITAL SIGNS: Ms. Keitas heart rate is 96, blood pressure 146/71, respiratory rate is 18-22. GENERAL: She is awake. She looks uncomfortable. LUNGS: Remarkable for coarse equal breath sounds. HEART: Regular rhythm. ABDOMEN: Quite distended. LABORATORY DATA: White count is back down to 29.7, her hemoglobin was 5.9 this morning. Two units o f blood were ordered. Platelets are 352,000. Sodium 137, potassium 4.1, chloride 111, bicarbonate 20, BUN 10, creatinine 0.8. IMPRESSION: 1. Respiratory failure. 2. Blood loss anemia. 3. Metabolic acidosis leading to intubation with peritonitis. She now has hyperchloremic acidosis. Her TPN will be adjusted today to take the chloride out of the TPN. 4. Deconditioning. PLAN: Extubation tomorrow. Family wanted her extubated no matter what tomorrow given that she is fa irly adamant that she not ever be intubated. Hopefully, she will be stable, although her abdominal discomfort and her abdominal distention, I festus diana, will likely have a significant effect on her ability to cough and clear secretions. CRITICAL CARE TIME: 30 minutes.
[2018-01-16] MEDS: Albumin 25% 25 GM/100 ML BOT IVPB SCH ×4 (00:28→18:05)
[2018-01-16] MEDS: Insulin Regular 300 UNITS/3 ML VIAL SC PRN (00:38)
[2018-01-16] MEDS: Piperacillin/Tazobactam 3.375 GM in Sodium Chloride 0.9% 100 ML IVPB SCH ×4 (02:44→20:31)
[2018-01-16] MEDS: fentaNYL Citrate/PF 2,000 MCG in Sodium Chloride 0.9% 60 ML IV SCH (04:16)
[2018-01-16 06:06] LABS: Anion Gap 13 mmol/L (10-20); BUN (Urea Nitrogen) 23 mg/dL (9.8-20.1); Calc. Creatinine Clearance 29 mL/min (70-130); Calcium 8.6 mg/dL (7.8-10.44); Carbon Dioxide 21 mmol/L (23-31); Chloride 107 mmol/L (98-107); Estimated GFR-MDRD 39; Glucose 137 mg/dL (83-110); Potassium 4.1 mmol/L (3.5-5.1); Sodium 137 mmol/L (136-145)
[2018-01-16 07:02] LABS: Band 15 % (5-11); Eosinophils 1 % (0-10); Hemoglobin 8.9 g/dL (12.0-16.0); Lymphocytes 4 % (21-51); MDiff Complete? YES; Mean Corpuscular HGB CONC 31.2 g/dL (32.0-36.0); Mean Corpuscular Hemoglobin 27.9 pg (27.0-31.0); Mean Corpuscular Volume 89.4 fl (81.0-99.0); Mean Platelet Volume 8.3 fL (7.4-10.4); Monocytes 4 % (0-10); Neutrophil 76 % (42-75); Platelet Count 297 thou/uL (130-400); RBC Distribution Width 15.4 % (11.5-14.5); White Blood Cell (WBC) Count 25.1 thou/uL (4.8-10.8)
[2018-01-16 07:12] LABS: Magnesium 2.3 mg/dL (1.6-2.6); Phosphorus 3.4 mg/dL (2.3-4.7)
--- NOTE | 2018-01-16 09:10 | RAD ---
AP CHEST: History: Ventilator dependent patient. Date: 01-16-18 Comparison: 01-15-18 FINDINGS: Nasogastric and endotracheal tubes are in place. A right subclavian central line is seen. Bilateral pleural effusions are seen. Pulmonary vascular congestion is noted. Diffuse interstitial an d airspace opacities are seen in both lungs. IMPRESSION: Stable AP chest with lines and tubes in good position. POS: [facility]
[2018-01-16] MEDS: Fluconazole In NaCl,Iso-Osm 400 MG in Premix Bag 1 BAG IVPB SCH (10:43)
[2018-01-16] MEDS: Vancomycin HCl 750 MG in Sodium Chloride 0.9% 250 ML 250 ML IVPB SCH ×2 (10:43→11:17)
[2018-01-16] MEDS: Pantoprazole 40 MG VIAL IVP SCH ×2 (10:44→20:31)
[2018-01-16] MEDS: Heparin 5,000 UNITS/ML VIAL SC SCH ×3 (10:44→20:31)
[2018-01-16 11:17] LABS: Vancomycin, Trough 33.5 ug/mL
[2018-01-16] MEDS: Propofol 1,000 MG/100 ML VIAL IV PRN ×2 (13:08→23:11)
--- NOTE | 2018-01-16 14:25 | PDOC.PN ---
- Subjective Encounter Start Date: 01/16/18 Encounter Start Time: 14:24 Patient seen and examined, no family at bedside, patient has no new issues per staff in past 24 hours. - Objective Resuscitation Status: Resuscitation Status DNR:Do Not Resuscitate Vital Signs & Weight: Vital Signs (12 hours) Temp Pulse Resp BP Pulse Ox 01/16/18 12:00 98.0 F 14 01/16/18 11:17 77 112/55 L 01/16/18 11:15 81 14 98 01/16/18 10:00 19 01/16/18 08:00 98.8 F 77 14 96 01/16/18 07:38 91 159/61 H 01/16/18 07:36 94 22 H 94 L 01/16/18 07:00 98.8 F 01/16/18 06:00 14 01/16/18 04:00 98.5 F 17 Weight Admit Weight 93 lb Weight 118 lb 13.266 oz Most Recent Monitor Data Heart Rate from ECG 93 NIBP 155/66 NIBP BP-Mean 83 Respiration from ECG 15 SpO2 92 I&O: 01/15/18 01/16/18 01/17/18 06:59 06:59 06:59 Intake Total 4910.9 3549.4 0 Output Total 1105 3590 565 Balance 3805.9 -40.6 -565 Result Diagrams: 01/16/18 05:33 01/16/18 05:33 Additional Labs: Accuchecks 01/16/18 01/16/18 01/16/18 10:06 05:29 00:28 POC Glucose 145 H 132 H 164 H 01/15/18 16:45 POC Glucose 138 H Phys Exam - Physical Examination Constitutional: NAD HEENT: PERRLA, sclera anicteric intubated, sedated Neck: no nodes, no JVD, supple coarse breath sounds all lung early Cardiovascular: no rub tachycardic, 2/6 ZULMA Gastrointestinal: soft, non-tender, no distention, positive bowel sounds drains in place Musculoskeletal: no edema, pulses present intubated, sedated Deviation from normal: intubated, sedated Skin: no rash, normal turgor Dx/Plan (1) Acute respiratory failure with hypoxia Code(s): J96.01 - ACUTE RESPIRATORY FAILURE WITH HYPOXIA Status: Acute (2) Diverticulitis of intestine, part unspecified, with perforation and abscess without bleeding Code(s): K57.80 - DVTRCLI OF INTEST, PART UNSP, W PERF AND ABSCESS W/O BLEED Status: Acute Comment: post op (3) Peritonitis Code(s): K65.9 - PERITONITIS, UNSPECIFIED Status: Acute (4) Sepsis Code(s): A41.9 - SEPSIS, UNSPECIFIED ORGANISM Status: Acute Qualifiers: Sepsis type: sepsis due to unspecified organism Qualified Code(s): A41.9 - Sepsis, unspecified organism (5) Essential hypertension Code(s): I10 - ESSENTIAL (PRIMARY) HYPERTENSION Status: Chronic - Plan * continue current plan of care * extubation for tmrw patient's family wishes, this will likely be a terminal extubation as prognosis is extremely poor * plan d/w patient's daughter on sunday, family aware of poor prognosis * no changes in plan from a medical perspective.
[2018-01-16] MEDS: SODIUM ACETATE IV SCH (15:34)
[2018-01-16] MEDS: POTASSIUM PHOSPHATE IV SCH (15:34)
[2018-01-16] MEDS: [UNRECOGNIZED DRUG - OTHER] IV SCH (15:34)
[2018-01-16] MEDS: POTASSIUM ACETATE IV SCH (15:34)
--- NOTE | 2018-01-16 17:01 | PRG ---
DATE OF SERVICE: 01/16/2018 SUBJECTIVE: Ms. Hagan still intubated this morning. She awakens to voice. OBJECTIVE: VITAL SIGNS: Blood pressure is 85/39, pulse 70, respirations 14. KRIS drainage total for the day is 3 30. Adequate urine output for the shift. NG output overnight was 200. ABDOMEN: Soft. Her midline wound is healing. Her right KRIS drain still purulent. The left side is serous. LABORATORY: White cell count down to 25, hemoglobin 8.9. Sodium is 137, potassium 4.1, creatinine 1 .32, glucose 137, calcium 8.6, phos and mag are normal. ASSESSMENT: Postoperative repair of perforated gastric ulcer with postoperative respiratory failure. PLAN: Hopefully, extubate soon, could start a trial of p.o. intake after that. Continue TPN for now .
--- NOTE | 2018-01-16 17:32 | PRG ---
DATE OF SERVICE: 01/16/2018 SUBJECTIVE: The family did not show up today. They called stating they wanted to wait until tomorro w to extubate her. OBJECTIVE: VITAL SIGNS: She is afebrile, heart rate is 77, blood pressure 112/55, respiratory rate 14. LUNGS: Clear. HEART: Regular rhythm. ABDOMEN: Distended and glass cleaning machine tender. EXTREMITIES: Without cyanosis or edema. She moves all of her extremities. LABORATORY AND X-RAY FINDINGS: Chest radiograph still shows pleural effusions bilaterally which were related to her peritonitis. White count is down to 25.1, hemoglobin 8.9 after 2 units yesterday, pl atelets 297. Electrolytes were normal, potassium 4.1, creatinine is 1.3, and there is no blood gas t yaquelin. IMPRESSION: Respiratory failure brought on by an acid base disorder, brought on by peritonitis and e riaz sepsis. KRIS drainage is growing 2 gram negatives Nelda and a gram positive. I believe at this time, this is clinically improving, although I think she may be too weak to survive this. She did n ot want intubation in the first place and this was actually done hoping that a short period of mechan ical ventilation would lead to enough improvement where she might survive. I was hoping to get her e xtubated as I have explained to the family because everyday she is ventilated, she gets weaker. Jamee benson wants to extubate her tomorrow, so we will honor their wishes. Critical care time was 30 minutes.
[2018-01-16 22:46] LABS: Vancomycin, Random 28.9 ug/mL (See Comment)
[2018-01-16] MEDS ORDERED: Vancomycin HCl 750 MG in Sodium Chloride 0.9% 250 ML 250 ML IVPB SCH (23:00)
[2018-01-17] MEDS: Piperacillin/Tazobactam 3.375 GM in Sodium Chloride 0.9% 100 ML IVPB SCH ×4 (03:47→21:55)
[2018-01-17] MEDS: Morphine 4 MG/ML VIAL SLOW IVP PRN ×3 (04:46→15:42)
[2018-01-17 05:32] LABS: Anion Gap 13 mmol/L (10-20); BUN (Urea Nitrogen) 30 mg/dL (9.8-20.1); Calc. Creatinine Clearance 28 mL/min (70-130); Carbon Dioxide 23 mmol/L (23-31); Chloride 106 mmol/L (98-107); Estimated GFR-MDRD 36; Glucose 133 mg/dL (83-110); Potassium 4.1 mmol/L (3.5-5.1); Sodium 138 mmol/L (136-145)
[2018-01-17 05:49] LABS: Band 23 % (5-11); Hemoglobin 9.3 g/dL (12.0-16.0); Lymphocytes 7 % (21-51); MDiff Complete? YES; Mean Corpuscular HGB CONC 31.7 g/dL (32.0-36.0); Mean Corpuscular Volume 88.3 fl (81.0-99.0); Mean Platelet Volume 8.2 fL (7.4-10.4); Metamyelocyte 3 % (0-0); Monocytes 6 % (0-10); Neutrophil 61 % (42-75); PLT Morphology Comment Appears Adequate; Platelet Count 322 thou/uL (130-400); Red Blood Cell (RBC) Count 3.31 mill/uL (4.20-5.40); White Blood Cell (WBC) Count 23.5 thou/uL (4.8-10.8)
[2018-01-17] MEDS ORDERED: Morphine 10 MG/ML VIAL SLOW IVP PRN (06:00)
[2018-01-17] MEDS: Pantoprazole 40 MG VIAL IVP SCH ×2 (08:07→21:54)
[2018-01-17] MEDS: Heparin 5,000 UNITS/ML VIAL SC SCH ×3 (08:09→21:54)
--- NOTE | 2018-01-17 09:26 | PRG ---
DATE OF SERVICE: 01/17/2018 SUBJECTIVE: Plan is for Ms. Hagan to get extubated later today to comfort measures. She has not improved significantly clinically from a respiratory standpoint. PHYSICAL EXAMINATION: VITAL SIGNS: She is afebrile and vital signs remain stable. ABDOMEN: Distended, tender, especially in the area of the incision. Right-sided drain is still puru lent. Left side is serous. LABORATORY DATA: Her white cell count is trending down consistently down to 23 today, but bands is u p to 23 as well. Her creatinine is 1.41. MEDICATIONS: She is on fluconazole, Zosyn, vancomycin. ASSESSMENT: Respiratory failure, brought on by peritonitis. PLAN: Extubate later today. Hopefully, she will clinically thrive. Continue antibiotics. We will address p.o. status in a few days if she is doing better.
--- NOTE | 2018-01-17 09:30 | RAD ---
SINGLE VIEW OF THE CHEST: Comparison: 01-16-18 History: Ventilated patient with respiratory failure. FINDINGS: Single view of the chest shows an enlarged cardiomediastinal silhouette. There are moderate bilateral pleural effusions. The lines and tubes are unchanged in position. Atelectasis is also seen in the jordan ng bases. No significant changes have occurred since the prior radiograph. IMPRESSION: Stable bilateral pleural effusions with adjacent atelectasis. POS: [facility]
[2018-01-17] MEDS: Propofol 1,000 MG/100 ML VIAL IV PRN (11:03)
[2018-01-17] MEDS: Fluconazole In NaCl,Iso-Osm 400 MG in Premix Bag 1 BAG IVPB SCH (12:49)
[2018-01-17] MEDS ORDERED: Morphine 4 MG/ML Carpuject SLOW IVP PRN (12:51)
[2018-01-17] MEDS ORDERED: Scopolamine 1.5 mg/72 hour Patch TD SCH (13:00)
[2018-01-17 13:51] VITALS: BMI 23.8
--- NOTE | 2018-01-17 13:56 | PDOC.PN ---
- Subjective Encounter Start Date: 01/17/18 Encounter Start Time: 11:00 Patient seen and examined, daughter and sons at bedside, all questions answered. - Objective Resuscitation Status: Resuscitation Status DNR:Do Not Resuscitate Vital Signs & Weight: Vital Signs (12 hours) Temp Pulse Resp BP Pulse Ox 01/17/18 12:00 33 H 01/17/18 11:00 99.3 F 01/17/18 10:37 116 H 153/74 H 01/17/18 10:35 111 H 22 H 96 01/17/18 10:00 20 01/17/18 08:00 99.7 F H 106 H 20 95 01/17/18 07:00 99.7 F H 01/17/18 06:44 99 145/68 H 01/17/18 06:40 90 15 98 01/17/18 06:00 14 01/17/18 04:00 16 01/17/18 03:00 99.5 F 01/17/18 02:00 14 Weight Admit Weight 93 lb Weight 121 lb 11.123 oz Most Recent Monitor Data Heart Rate from ECG 117 NIBP 191/93 NIBP BP-Mean 158 Respiration from ECG 30 SpO2 94 I&O: 01/16/18 01/17/18 01/18/18 06:59 06:59 06:59 Intake Total 3549.4 2797 44.5 Output Total 3590 3240 1255 Balance -40.6 -443 -1210.5 Result Diagrams: 01/17/18 04:54 01/17/18 04:54 Additional Labs: Accuchecks 01/17/18 01/17/18 01/16/18 04:46 00:24 18:24 POC Glucose 139 H 143 H 150 H Phys Exam - Physical Examination sedated HEENT: PERRLA sedated, intubated Neck: no nodes, no JVD, supple coarse breath sounds Cardiovascular: no significant murmur, no rub tachycardic rate Gastrointestinal: soft, non-tender, no distention, positive bowel sounds KRIS drains in place Musculoskeletal: no edema, pulses present sedated Deviation from normal: sedated Skin: no rash, normal turgor Dx/Plan (1) Acute respiratory failure with hypoxia Code(s): J96.01 - ACUTE RESPIRATORY FAILURE WITH HYPOXIA Status: Acute (2) Diverticulitis of intestine, part unspecified, with perforation and abscess without bleeding Code(s): K57.80 - DVTRCLI OF INTEST, PART UNSP, W PERF AND ABSCESS W/O BLEED Status: Acute Comment: post op (3) Peritonitis Code(s): K65.9 - PERITONITIS, UNSPECIFIED Status: Acute (4) Sepsis Code(s): A41.9 - SEPSIS, UNSPECIFIED ORGANISM Status: Acute Qualifiers: Sepsis type: sepsis due to unspecified organism Qualified Code(s): A41.9 - Sepsis, unspecified organism (5) Essential hypertension Code(s): I10 - ESSENTIAL (PRIMARY) HYPERTENSION Status: Chronic - Plan * extubation this afternoon, will likely be terminal extubation * comfort care and pain control for now * family aware of very poor prognosis * case and plan d/w daughter and both sons who were at bedside, all questions answered, they understand and agree with this plan
[2018-01-17] MEDS: Insulin Regular 300 UNITS/3 ML VIAL SC PRN (14:44)
[2018-01-17] MEDS: SODIUM ACETATE IV SCH (15:33)
[2018-01-17] MEDS: POTASSIUM PHOSPHATE IV SCH (15:33)
[2018-01-17] MEDS: POTASSIUM ACETATE IV SCH (15:33)
[2018-01-17] MEDS: [UNRECOGNIZED DRUG - OTHER] IV SCH (15:33)
--- NOTE | 2018-01-17 17:34 | PRG ---
DATE OF SERVICE: 01/17/2018 SUBJECTIVE: Ms. Hagan remains mechanically ventilated. The family is all here and wanted to pro ceed with extubation. I have explained to her that she may survive, but she may not. OBJECTIVE: VITAL SIGNS: Heart rates 115 after extubation. Blood pressure 152/87, respiratory rates in the mid 20s. LUNGS: Remarkable for coarse equal breath sounds. HEART: Regular rhythm. ABDOMEN: Still distended. LABORATORY DATA: White count 23.5, hemoglobin 9.3, platelets 322,000. Sodium 138, potassium 4.1, chloride 106, bicarb 23, BUN 30, creatinine 1.41. Intake and output negative 443 today. IMPRESSION: Peritonitis after perforated viscus with multiple organisms isolated from her drainage f luid including Nelda. She remains on broad antimicrobial therapy. She subsequently has been extub ated per family wishes. We will continue antimicrobial therapy and nutritional support as long as it looks like she may survive. If she declines, then she will be kept comfortable with morphine and co mfort meds. Critical care time was 30 minutes.
[2018-01-17 23:12] LABS: Vancomycin, Random 20.6 ug/mL (See Comment)
[2018-01-18] MEDS: Piperacillin/Tazobactam 3.375 GM in Sodium Chloride 0.9% 100 ML IVPB SCH ×2 (02:41→12:22)
[2018-01-18 05:28] LABS: Band 4 % (5-11); Hemoglobin 10.8 g/dL (12.0-16.0); Hypochromia SLIGHT = 6-15 cells (100X) (0-5/hpf); Lymphocytes 7 % (21-51); MDiff Complete? YES; Mean Corpuscular HGB CONC 30.5 g/dL (32.0-36.0); Mean Corpuscular Hemoglobin 28.4 pg (27.0-31.0); Mean Corpuscular Volume 92.8 fl (81.0-99.0); Mean Platelet Volume 9.3 fL (7.4-10.4); Metamyelocyte 1 % (0-0); Monocytes 9 % (0-10); Myelocyte 1 % (0-0); Neutrophil 78 % (42-75); Nucleated RBC 1 % (0); PLT Morphology Comment Appears Adequate; Platelet Count 216 thou/uL (130-400); RBC Distribution Width 16.5 % (11.5-14.5); Red Blood Cell (RBC) Count 3.82 mill/uL (4.20-5.40); White Blood Cell (WBC) Count 25.2 thou/uL (4.8-10.8)
[2018-01-18 05:29] LABS: Anion Gap 25 mmol/L (10-20); BUN (Urea Nitrogen) 40 mg/dL (9.8-20.1); Calc. Creatinine Clearance 20 mL/min (70-130); Calcium 9.3 mg/dL (7.8-10.44); Carbon Dioxide 12 mmol/L (23-31); Chloride 106 mmol/L (98-107); Estimated GFR-MDRD 24; Glucose 119 mg/dL (83-110); Potassium 6.4 mmol/L (3.5-5.1); Sodium 137 mmol/L (136-145)
[2018-01-18] MEDS: Heparin 5,000 UNITS/ML VIAL SC SCH (08:56)
[2018-01-18] MEDS: Fluconazole In NaCl,Iso-Osm 400 MG in Premix Bag 1 BAG IVPB SCH (08:58)
[2018-01-18] MEDS: Pantoprazole 40 MG VIAL IVP SCH (08:59)
[2018-01-18 09:09] LABS: Vancomycin, Random 20.2 ug/mL (See Comment)
[2018-01-18] MEDS ORDERED: Lorazepam 2 MG/ML VIAL SLOW IVP PRN (10:59)
[2018-01-18] MEDS ORDERED: Artificial Tears 18 DROP/0.9 ML EA EYE PRN (10:59)
[2018-01-18] MEDS ORDERED: ALPRAZolam 0.5 MG TAB PO PRN (10:59)
[2018-01-18] MEDS ORDERED: Morphine 10 MG/0.5 ML ORAL SYRINGE SL PRN (10:59)
--- NOTE | 2018-01-18 11:04 | PDOC.PN ---
- Subjective Encounter Start Date: 01/18/18 Encounter Start Time: 11:01 Patient seen and examined, daughter at bedside, all questions answered. - Objective Resuscitation Status: Resuscitation Status DNR:Do Not Resuscitate Vital Signs & Weight: Vital Signs (12 hours) Temp Pulse Resp BP Pulse Ox 01/18/18 07:31 98.0 F 84 14 111/63 82 L 01/18/18 07:03 80 28 H Weight Admit Weight 93 lb Weight 121 lb 11.123 oz Most Recent Monitor Data Heart Rate from ECG 98 NIBP 91/50 NIBP BP-Mean 57 Respiration from ECG 29 SpO2 94 I&O: 01/17/18 01/18/18 01/19/18 06:59 06:59 06:59 Intake Total 2797 2108.5 Output Total 3240 2215 Balance -443 -106.5 Result Diagrams: 01/18/18 04:41 01/18/18 04:41 Additional Labs: Accuchecks 01/17/18 01/17/18 18:43 14:41 POC Glucose 108 213 H Phys Exam - Physical Examination agonal respirations HEENT: PERRLA ventimask in place dry oral mucosa Neck: no nodes, no JVD coarse breath sounds all lung early Cardiovascular: no significant murmur, no rub tachycardic rate Gastrointestinal: soft, non-tender, no distention VERY SLOW bowel sounds KRIS drains in place Musculoskeletal: no edema, pulses present Neurological: moves all 4 limbs Deviation from normal: non-verbal Dx/Plan (1) Acute respiratory failure with hypoxia Code(s): J96.01 - ACUTE RESPIRATORY FAILURE WITH HYPOXIA Status: Acute (2) Diverticulitis of intestine, part unspecified, with perforation and abscess without bleeding Code(s): K57.80 - DVTRCLI OF INTEST, PART UNSP, W PERF AND ABSCESS W/O BLEED Status: Acute Comment: post op (3) Peritonitis Code(s): K65.9 - PERITONITIS, UNSPECIFIED Status: Acute (4) Sepsis Code(s): A41.9 - SEPSIS, UNSPECIFIED ORGANISM Status: Acute Qualifiers: Sepsis type: sepsis due to unspecified organism Qualified Code(s): A41.9 - Sepsis, unspecified organism (5) Essential hypertension Code(s): I10 - ESSENTIAL (PRIMARY) HYPERTENSION Status: Chronic - Plan * extremely poor prognosis * no urine out put in last 12 hours, patient has severe hyperkalemia as well * At this point in time after a long discussion with the patient's daughter, will discontinue all IVFs and all IV medications and feedings, will discontinue all lab draws as well. * MICHAEL carson * will provide comfort measures to patient, continue with scopolamine patch, will give xanax for anxiety, eye drops, roxanol for pain, continue with supplemental oxygen for now * patient has an extremely high probability that she will pass away soon, daughter is aware of this and understands * above plan d/w daughter at length, she understands and agrees with this plan
[2018-01-18] MEDS ORDERED: Scopolamine 1.5 mg/72 hour Patch TD SCH (12:00)
[2018-01-18] MEDS: Morphine 4 MG/ML VIAL IV SCH ×4 (16:26→22:13)
--- NOTE | 2018-01-18 18:42 | PRG ---
DATE OF SERVICE: 01/18/2018 SUBJECTIVE: The patient is status post exploratory laparotomy for perforated duodenal ulcer and sushila tonitis. The patient has been terminally extubated and currently on the medical floor. A lengthy di scussion was taken place with family members today by myself and the Palliative Care team. The nat nt's family has also talked to the medical team and they would like to continue with comfort measures for their mother. All were in agreement with this and orders were written for the same. PHYSICAL EXAMINATION: VITAL SIGNS: Temperature is 98.0, heart rate 84, respirations 28 and labored/agonal, oxygen saturati on is 92% on 15 liters via nonrebreather, blood pressure 111/63. GENERAL: The patient is lying in bed. She is having agonal respirations. Her eyes are open, but sh e does not follow any commands or respond to any sort of verbal stimuli. LUNGS: Have coarse rhonchi bilaterally. ABDOMEN: Soft with absent bowel sounds. LABORATORY FINDINGS: White blood cell count 25.2, hemoglobin 10.8, hematocrit 35.5, platelets 216. Sodium 137, potassium 6.4, chloride 106, BUN 40, creatinine 1.98, glucose 119. There are no radiogra phs to review this morning. ASSESSMENT AND PLAN: 1. Status post exploratory laparotomy for perforated viscus. 2. Peritonitis. 3. Respiratory failure secondary to peritonitis. The patient has been terminally extubated. Plan w ill be to continue comfort measures and care per the family's wishes.
[2018-01-19] MEDS: Morphine 4 MG/ML VIAL IV SCH ×10 (00:18→17:57)
[2018-01-19 07:23] VITALS: BP 124/67
[2018-01-19 10:36] VITALS: TEMP 97.9
--- NOTE | 2018-01-19 14:19 | PDOC.PN ---
- Subjective Encounter Start Date: 01/19/18 Encounter Start Time: 14:17 Patient seen and examined, family at bedside, no changes in status. All questions answered. - Objective Resuscitation Status: Resuscitation Status DNR:Do Not Resuscitate Vital Signs & Weight: Vital Signs (12 hours) Temp Pulse Resp BP 01/19/18 08:00 97.9 F 68 20 01/19/18 07:19 68 124/67 Weight Admit Weight 93 lb Weight 121 lb 11.123 oz Most Recent Monitor Data Heart Rate from ECG 98 NIBP 91/50 NIBP BP-Mean 57 Respiration from ECG 29 SpO2 94 I&O: 01/18/18 01/19/18 01/20/18 06:59 06:59 06:59 Intake Total 2108.5 500 Output Total 2215 180 Balance -106.5 320 Result Diagrams: 01/18/18 04:41 01/18/18 04:41 Phys Exam - Physical Examination agonal respirations dry mucous membranes, B/L fixed pupils Neck: no nodes, no JVD agonal respirations, coarse breath sounds Cardiovascular: no significant murmur, no rub Tachycardic rate Gastrointestinal: soft, non-tender, no distention, positive bowel sounds Musculoskeletal: no edema, pulses present withdraws to pain Dx/Plan (1) Acute respiratory failure with hypoxia Code(s): J96.01 - ACUTE RESPIRATORY FAILURE WITH HYPOXIA Status: Acute (2) Diverticulitis of intestine, part unspecified, with perforation and abscess without bleeding Code(s): K57.80 - DVTRCLI OF INTEST, PART UNSP, W PERF AND ABSCESS W/O BLEED Status: Acute Comment: post op (3) Peritonitis Code(s): K65.9 - PERITONITIS, UNSPECIFIED Status: Acute (4) Sepsis Code(s): A41.9 - SEPSIS, UNSPECIFIED ORGANISM Status: Acute Qualifiers: Sepsis type: sepsis due to unspecified organism Qualified Code(s): A41.9 - Sepsis, unspecified organism (5) Essential hypertension Code(s): I10 - ESSENTIAL (PRIMARY) HYPERTENSION Status: Chronic - Plan * poor prognosis * family wishes to remove oxygen mask today once all of her family has had a chance to say good bye * highly likely patient will pass away within 24 hours * case and plan d/w daughter and son at length, they understand and agree with this plan
[2018-01-19] MEDS ORDERED: Morphine 4 MG/ML VIAL IV SCH (18:15)
--- NOTE | 2018-01-20 08:42 | PDOC.EVN ---
Event Note - Event Note Event Note: summary #[id number]
--- NOTE | 2018-01-20 16:14 | DS ---
DATE OF ADMISSION: 01/08/2018 DATE OF EXPIRATION: 01/19/2018 ADMITTING DIAGNOSES: Abdominal pain, diarrhea, history of hypertension, history of vertigo and histo ry of spinal compression fracture. DIAGNOSES AT TIME OF : Abdominal bowel perforation, septic peritonitis, renal failure, hyperkal emia, sepsis, supraventricular tachycardia, anemia as well as respiratory failure. HOSPITAL COURSE: This is an 82-year-old female who was admitted for abdominal pain, diarrhea who was initially admitted to the Internal Medicine team, had an appropriate followups with Pulmonary Critic al Care as well as surgery. Patient was found to have a perforation of her intestinal tract and was taken to the OR. Aggressive surgical management was done. Patient post-surgery was admitted to ICU, intubated and was having a relatively progressive normal course; however, 2 to 3 days post-surgery, the patient had a leukemoid reaction and recurrent bleeding. White cell count went as high as 55. T he patient never truly recovered from that incident and was having progressive downward decline in fu nction as well as a drop in urine output. The patient was started on parenteral nutrition to help as sist in recovery. However, after observing the patient in the ICU for 7 days, a long discussion was held with the Internal Medicine, Pulmonary Critical Care surgery and conclusion was made that given t he fact that there was no recovery occurring at this point in time and the patient's clinical status continued to decline. It would have been futile to continue trying. Plan was discussed with dave roberts and both sons at length at bedside by all subspecialties as well as the primary team at different o ccasions. The family was understanding of the prognosis and was okay with terminal extubation. The patient was extubated terminally and moved to the medical/surgical floor. Comfort care was provided. Aggressive medical management was continued; however, at the point of moving the patient to the med [facility]/surgical floor, the family stated that they would prefer no more blood work done and no more agg ressive medical management. At that point in time, the patient was given comfort care with eyedrops, scopolamine patches, Xanax, morphine as needed and patient's family wanted the patient to continue h er oxygen, so this was continued. They stated that they were grateful. Patient on 8 at 6:30 p.m. Case and plan have been discussed with the patient's daughter and son at length by e primary care team earlier in the day. Family was understanding and was expecting the expiration of the patient at that time.
== END 2018-01-19 18:30 | disposition expired | DRG 853 ==
LOC: ERS 09:09 → SDC 14:38 → CCU 19:56 → SJJU 01-09 16:57 → CCU 01-11 09:19 → T4-A 01-17 20:37
PROVIDERS: ADMIT Internal Medicine; ATTEND Internal Medicine
PROC: 0DU707Z Supplement Stomach, Pylorus with Autologous Tissue Substitute, Open Approach (ICD-10-PCS; principal; 2018-01-08)
PROC: 0W9J0ZZ Drainage of Pelvic Cavity, Open Approach (ICD-10-PCS; 2018-01-08)
PROC: 0BH17EZ Insertion of Endotracheal Airway into Trachea, Via Natural or Artificial Opening (ICD-10-PCS; 2018-01-11)
PROC: 5A1955Z Respiratory Ventilation, Greater than 96 Consecutive Hours (ICD-10-PCS; 2018-01-11)
PROC: 02HV33Z Insertion of Infusion Device into Superior Vena Cava, Percutaneous Approach (ICD-10-PCS; 2018-01-13)
PROC: 3E0436Z Introduction of Nutritional Substance into Central Vein, Percutaneous Approach (ICD-10-PCS; 2018-01-13)
PROC: 30233N1 Transfusion of Nonautologous Red Blood Cells into Peripheral Vein, Percutaneous Approach (ICD-10-PCS; 2018-01-15)
DX: A41.9 Sepsis, unspecified organism (principal); K25.5 Chronic or unspecified gastric ulcer with perforation; K65.1 Peritoneal abscess; J96.01 Acute respiratory failure with hypoxia; K57.20 Diverticulitis of large intestine with perforation and abscess without bleeding; E87.2 Acidosis; B37.89 Other sites of candidiasis; I47.1 Supraventricular tachycardia; J90 Pleural effusion, not elsewhere classified; D50.0 Iron deficiency anemia secondary to blood loss (chronic); D72.823 Leukemoid reaction; Z51.5 Encounter for palliative care; Z66 Do not resuscitate; I10 Essential (primary) hypertension; E88.09 Other disorders of plasma-protein metabolism, not elsewhere classified; E83.42 Hypomagnesemia; E87.6 Hypokalemia; F41.9 Anxiety disorder, unspecified; E87.5 Hyperkalemia; Z79.899 Other long term (current) drug therapy
CPT/HCPCS: 36415; 36416; 36430; 51701; 71045; 74018; 74176; 74177; 80048; 80053; 80202; 81003; 81015; 82805; 83605; 83690; 83735; 84100; 85007; 85025; 85027; 86850; 86900; 86901; 87040; 87070; 87086; 87205; 93005; 94002; 94003; 94640; 94760; 96365; 96367; 96375; 96376; A4216; C9113; G8978-GP-CM; G8979-GP-CK; J0131; J1450; J1642; J1644; J1815; J1940; J1956; J2001; J2060; J2250; J2270; J2543; J2550; J2704; J3010; J3370; J3475; J3480; J7050; J7620; P9016; P9045; P9047; Q0162